=== PATIENT | female | born 2005 | race Caucasian/White ===

== ENCOUNTER 2023-08-31 08:03 | Outpatient (CLI) | payer MEDICAID, SELFPAY ==
--- NOTE | 2023-08-31 08:15 | US_ITS ---
Patient: DOUGLAS JONES Facility:?[facility] Patient ID:?[id number] Site Patient ID:?[id number] Site :?2003 Study:?US-Breast Left DSM to read-08/31/2023 8:50:41 AM Ordering Physician:?Cailin West Final Report: LEFT BREAST ULTRASOUND CLINICAL HISTORY: LEFT breast lump. COMPARISON: None. TECHNIQUE: Real-time ultrasound imaging of LEFT breast with imaging documentation. FINDINGS: Targeted sonogram LEFT breast 1 o`clock 3 cm from the nipple performed. Dense fibroglandular tissue is present. There is a small cyst present at posterior depth measuring 6 x 4 x 5 millimeters. No solid mass. IMPRESSION: Benign fibrocystic changes with a small 6 mm cyst at 1 o`clock 3 cm from the nipple. No abscess or malignancy. RECOMMENDATIONS: Clinical follow-up and age-appropriate screening mammography. Results and recommendations were discussed with the patient at the time of the exam. BI-RADS Category 2: Benign A lay language report of this examination will be provided to the patient. Dictated by Jared Carlos MD @ 08/31/2023 9:14:33 AM jj/Dictated by: Jared Carlos MD @ 08/31/2023 9:14:00 AM Signed by:?Jared Carlos MD @08/31/2023 12:27:40 PM (Electronic Signature)
== END 2023-08-31 08:04 | disposition home or self-care (01) ==
LOC: US 08:05
PROVIDERS: Visit Provider Registered Nurse
DX: N63.20 Unspecified lump in the left breast, unspecified quadrant (principal); N64.4 Mastodynia
CPT/HCPCS: 76642

== ENCOUNTER 2024-01-23 15:08 | Outpatient (CLI) | payer MEDICAID, SELFPAY ==
--- OUTSIDE RECORDS SUMMARY | 2024-01-23 15:12 | XMS_ITS | Clinical Summary ---
Author Organization [place] Address [address] [place], [place] [address]. [place] [address] Care Team Providers Care Clinical Administrator Name Role Phone Jared Mondragon MD Unavailable [phone] Clinic, [facility] Allergies Active Allergy Reactions Criticality Noted Date Comments Chlorhexidine Hives,Itching,Rash High 01/03/2022 Fluoxetine Dizziness,Hives,Othe r (See Comments),Unknown High 01/08/2019 Latex Hives,Rash High 01/03/2022 Lidocaine Hives,Rash High 03/24/2022 Medications Medication Sig Dispensed Refills Start Date End Date Status CALCIUM CARBONATE PO Take 600 mg by mouth Active drospirenone-ethinyl estradiol (ADWOA) 3-0.03 MG tablet Take 1 tablet by mouth daily Active fluticasone (FLONASE) 50 MCG/ACT nasal spray [place] 1 spray into both nostrils daily Active ranitidine (ZANTAC) 150 MG tablet Take 150 mg by mouth 2 times daily Active sertraline (ZOLOFT) 50 MG tablet Take 50 mg by mouth daily Active VITAMIN D, CHOLECALCIFEROL, PO Take 5,000 Units by mouth daily Active ferrous fumarate 65 mg, [place]. FE,-Vitamin C 125 mg (VITRON C) 65-125 MG TABS tablet Take 1 tablet by mouth daily Active METOPROLOL TARTRATE PO Take 25 mg by mouth Activ e fluticasone (FLONASE) 50 MCG/ACT nasal spray [place] 1 spray into both nostrils daily 9.9 mL 02/18/2023 Active Active Problems Problem Noted Date Diagnosed Date Dizziness 05/16/2019 Autonomic disorder 12/10/2018 Comments Yes Encounters Date Type Department Care Team Description 12/29/2023 7:24 PM CDT - 12/29/2023 10:10 PM CDT Emergency [facility] [address] [place] [address] Luis E Meade MD Abdominal pain during in first trimester Discharge Disposition: Home or Self Care 12/29/2023 Travel from Last 3 Months Social History Tobacco Use Types Packs/Day Years Used Date Smoking Tobacco: Never Smokeless Tobacco: Never Alcohol Use Standard Drinks/Week Comments Never 0 (1 standard drink = 0.6 oz pur e alcohol) AUDIT-C Answer Date Recorded Q1: How often do you have a drink containing alc ohol? Never 01/12/2019 Average Number of Drinks Not on file 019 Frequency of Binge Drinking Not on file 12/17 PHQ-2 Answer Date Recorded PHQ-2 Score 0 06/17/2019 Adolescent Education Answer Date Record ed Getting School Help Needed Not on file 01/29 Comments Yes Sex and Gender Information Value Date Recorded Sex Assigned at Not on file Gender Identity Not on file Sexual Orientation Not on file Last Filed Vital Signs Vital Sign Reading Time Taken Comments Blood Pressure 112/85 12/29/2023 10:06 PM CDT Pulse 118 12/29/2023 10:06 PM CDT Temperature 36.6 ??C (97.8 ??F) 12/29/2023 7:11 PM CD T Respiratory Rate 18 12/29/2023 10:06 PM CDT Oxygen Saturation 100% 12/29/2023 10:06 PM CDT Inhaled Oxygen Concentration - - Weight 47.2 kg (104 lb 0.9 oz) 12/29/2023 7:11 P M CDT Height 157.5 cm (5' 2) 12/29/2023 7:11 PM CDT Body Mass Index 19.03 12/29/2023 7:11 PM CDT Plan of Treatment Health Maintenance Due Date Last Done Comments ADVANCE CARE PLANNING 2003 ANNUAL REVIEW OF HM ORDERS 2003 CHLAMYDIA SCREENING 2003 YEARLY PREVENTIVE VISIT 2003 HIV SCREENING 12/03/2018 HEPATITIS C SCREENING 12/03/2021 PHQ-2 (once per calendar year) 2023 06/17/2019 COVID-19 Vaccine ( season) 2023 INFLUENZA VACCINE (#1) 2023 DTAP/TDAP/TD IMMUNIZATION (7 - Td or Tdap) 12/17/2025 12/18/2015, 07/25/2008, 05/17/2005, Additional history exists HEPATITIS B IMMUNIZATION Completed 005, 06/15/2004, 06/15/2004, Additional history exists Pneumococcal Vaccine: Pediatrics (0 to 5 Years) and At-Risk Patients (6 to 64 Years) Aged Out 05/17/2005, 09/28/2004, 06/15/2004, Additional history exists No longer eligible based on patient's age to complete this topic MENINGITIS IMMUNIZATION Aged Out 12/18/2015, 12/17 No longer eligible based on patient's age to complete this topic HPV IMMUNIZATION Completed 01/31/2019, 12/06/2016 RSV MONOCLONAL ANTIBODY Aged Out No l onger eligible based on patient's age to complete this topic Procedures Procedure Name Priority Date/Time Associated Diagnosis Comments US OB <14 WEEKS WITH TRANSVAGINAL SINGLE STAT 12/29/2023 9:16 PM CDT EXTRA BLOOD BANK PURPLE TOP TUBE STAT 12/29/2023 8:04 PM CDT EXTRA BLUE TOP TUBE STAT 12/29/2023 8 :04 PM CDT EXTRA BLOOD BANK PURPLE TOP TUBE STAT 12/29/2023 8:03 PM CDT EXTRA TUBE STAT 12/29/2023 8:03 PM CDT ABO/RH TYPE AND SCREEN STAT 12/29/2023 7:45 PM CDT TYPE AND SCREEN, ADULT STAT 12/29/2023 7:45 PM CDT CBC WITH PLATELETS & DIFFERENTIAL STAT 12/29/2023 7:25 PM CDT CBC WITH PLATELETS AND DIFFERENTIAL STAT 12/29/2023 7:25 PM CDT BASIC METABOLIC PANEL STAT 12/29/2023 7:25 PM CDT HCG QUANTITATIVE STAT 12/29/2023 7:25 PM CDT from Last 3 Months Results * OB US 1st trimester w transvag (12/29/2023 9:16 PM CDT) Anatomical Region Laterality Modality Abdomen/Pelvis Ultrasound 12/29/2023 9:16 PM CDT Impressions 12/29/2023 9:34 PM CDT IMPRESSION: Early intrauterine , 4 weeks 5 days by mean sac diameter, recommend continued follow-up with beta hCG and ultrasound as clinically indicated. Narrative 12/29/2023 9:34 PM CDT EXAM: US OB <14 WEEKS WITH TRANSVAGINAL SINGLE LOCATION: [facility] DATE: 12/29/2023 INDICATION: pain in , 5 6 weeks COMPARISON: None. TECHNIQUE: Transabdominal scans were performed. Endovaginal ultrasound was performed to better visualize the embryo. FINDINGS: UTERUS: Single normal appearing intrauterine gestation sac. MSD: Measures 0.3 cm, equals 4 weeks 5 days, 1 mm possible embryo visualized.. HEART RATE: None. Too early to require. AMNIOTIC FLUID: Normal. PLACENTA: Not yet formed. No evidence for sub-chorionic hemorrhage. RIGHT OVARY: Normal. Contains corpus luteal cyst. LEFT OVARY: Normal. Procedure Note Luis E Clarke MD - 12/29/2023 EXAM: US OB <14 WEEKS WITH TRANSVAGINAL SINGLE LOCATION: [facility] DATE: 12/29/2023 INDICATION: pain in , 5 6 weeks COMPARISON: None. TECHNIQUE: Transabdominal scans were performed. Endovaginal ultrasound wasperformed to better visualize the embryo. FINDINGS: UTERUS: Single normal appearing intrauterine gestation sac. MSD: Measures 0.3 cm, equals 4 weeks 5 days, 1 mm possible embryovisualized.. HEART RATE: None. Too early to require. AMNIOTIC FLUID: Normal. PLACENTA: Not yet formed. No evidence for sub-chorionic hemorrhage. RIGHT OVARY: Normal. Contains corpus luteal cyst. LEFT OVARY: Normal. IMPRESSION: Early intrauterine , 4 weeks 5 days by mean sac diameter,recommend continued follow-up with beta hCG and ultrasound as clinicallyindicated. Luis E Meade MD IMG US ORDERABLES * Extra Blood Bank Purple Top Tube (12/29/2023 8:04 PM CDT) Only the most recent of2 resultswithin the time period is included. Hold Specimen [facility] 12/29/2023 9:16 PM CDT [facility] LAB[facility] Blood VENOUS STRUCTURE / Unknown Venipuncture / Unknown 12/29/2023 8:04 PM CDT 12/29/2023 8:04 PM CDT Luis E Meade MD LAB - BLOOD ORDER PANCHO [facility] Lab [address] Lab (1st floor, no room number) [address] * Extra Blue Top Tube (12/29/2023 8:04 PM CDT) Hold Specimen [facility] 12/29/2023 9:16 PM CDT [facility] Blood VENOUS STRUCTURE / Unknown Venipuncture / Unknown 12/29/2023 8:04 PM CDT 12/29/2023 8:04 PM CDT Luis E Meade MD LAB - BLOOD ORDER PANCHO [facility] [address] Lab (1st floor, no room number) [address] * Adult Type and Screen (12/29/2023 7:45 PM CDT) ABO/RH(D) A POS 12/29/2023 7:38 PM CDT RH BLOOD BANK Antibody Screen Negative Negative 12/29/2023 7:38 PM CDT RH BLOOD BANK SPECIMEN EXPIRATION DATE [id number] 12/29/2023 7:38 PM CDT RH BLOOD BANK Blood BLOOD SPECIMEN / Unknown Venipuncture / Unknown 12/29/2023 7:45 PM CDT 12/29/2023 7:49 PM CDT Luis E Meade MD LAB - BLOOD BANK TEST ORDER RH [place]LOOD [place] [address], [facility] * CBC with platelets and differential (12/29/2023 7:25 PM CDT) WBC Count 7.1 4.0 - 11.0 10e3/uL 12/29/2023 8:03 PM CDT [facility] RBC Count 4.62 3.80 - 5.20 10e6/uL 12/29/2023 8:03 PM CDT [facility] Hemoglobin 13.2 11.7 - 15.7 g/dL 12/29/2023 8:03 PM CDT [facility] Hematocrit 39.7 35.0 - 47.0 % 12/29/2023 8:03 PM CDT [facility] MCV 86 78 - 100 fL 12/29/2023 8:03 PM CDT [facility] MCH 28.6 26.5 - 33.0 pg 12/29/2023 8:03 PM CDT [facility] MCHC 33.2 31.5 - 36.5 g/dL 12/29/2023 8:03 PM CDT [facility] RDW 13.2 10.0 - 15.0 % 12/29/2023 8:03 PM CDT [facility] Platelet Count 295 150 - 450 10e3/uL 12/29/2023 8:03 PM CDT [facility] % Neutrophils 71 % 12/29/2023 8:03 PM CDT [facility] % Lymphocytes 20 % 12/29/2023 8:03 PM CDT [facility] % Monocytes 8 % 12/29/2023 8:03 PM CDT [facility] % Eosinophils 0 % 12/29/2023 8:03 PM CDT [facility] % Basophils 1 % 12/29/2023 8:03 PM CDT [facility] % Immature Granulocytes 0 % 12/29/2023 8:03 PM CDT [facility] NRBCs per 100 WBC 0 <1 /100 024 8:03 PM CDT [facility] Absolute Neutrophils 5.1 1.6 - 8.3 10e3/uL 12/29/2023 8:03 PM CDT [facility] Absolute Lymphocytes 1.4 0.8 - 5.3 10e3/uL 12/29/2023 8:03 PM CDT [facility] Absolute Monocytes 0.6 0.0 - 1.3 10e3/uL 12/29/2023 8:03 PM CDT [facility] LAB[facility] Absolute Eosinophils 0.0 0.0 - 0.7 10e3/uL 12/29/2023 8:03 PM CDT [facility] LAB[facility] Absolute Basophils 0.0 0.0 - 0.2 10e3/uL 12/29/2023 8:03 PM CDT [facility] LAB[facility] Absolute Immature Granulocytes 0.0 <=0.4 10e3/uL 12/29/2023 8:03 PM CDT [facility] LAB[facility] Absolute NRBCs 0.0 10e3/uL 12/29/2023 8:03 PM CDT [facility] Blood BLOOD SPECIMEN / Unknown Venipuncture / Unknown 12/29/2023 7:25 PM CDT 12/29/2023 8:00 PM CDT Luis E Meade MD LAB - BLOOD ORDER PANCHO Performing Organization Address City/State/[facility] Co de Phone Number LABORATORY [facility] Lab [address] [facility] Lab (1st floor, no room number) [place] [address], [facility] * (ABNORMAL) HCG QUANTitative (blood) (12/29/2023 7:25 PM CDT) Pathologist [facility] hCG Quantitative 1,762(H) <5 mIU/mL 12/29/19 24 8:33 PM CDT [facility] LABORATORY Comment: Adult: 0-5 mIU/mL for healthy non- person Neonates: Should be within normal ranges by 2 days after Blood BLOOD SPECIMEN / Unknown Venipuncture / Unknown 12/29/2023 7:25 PM CDT 12/29/2023 8:09 PM CDT Luis E Meade MD LAB - BLOOD ORDER PANCHO LABORATORY [facility] Lab [address] Lab (1st floor, no room number) [place] [address], [facility] * (ABNORMAL) Basic metabolic panel (BMP) (12/29/2023 7:25 PM CDT) Sodium 135 135 - 145 mmol/L 12/29/2023 8:27 PM CDT LABORATORY Potassium 4.0 3.4 - 5.3 mmol/L 12/29/2023 8:27 PM CDT LABORATORY Chloride 102 98 - 107 mmol/L 12/29/2023 8:27 PM CDT LABORATORY Carbon Dioxide (CO2) 19(L) 22 - 29 mmol/L 12/29/2023 8:27 PM CDT LABORATORY Anion Gap 14 7 - 15 mmol/L 12/29/2023 8:27 PM CDT LABORATORY Urea Nitrogen 8.2 6.0 - 20.0 mg/dL 12/29/2023 8:27 PM CDT LABORATORY Creatinine 0.73 0.51 - 0.95 mg/dL 12/29/2023 8:27 PM CDT LABORATORY GFR Estimate >90 >60 mL/min/1.7 3m2 12/29/2023 8:27 PM CDT LABORATORY Comment:eGFR calculated usin 2020 CKD-EPI equation. Calcium 9.3 8.8 - 10.4 mg/dL 12/29/2023 8:27 PM CDT LABORATORY Comment:Reference intervals for this test were updated on 10/31/2023 to reflect our healthy population more accurately. There may be differences in the flagging of prior results with similar values performed with this method. Those prior results can be interpreted in the context of the updated reference intervals. Glucose 97 70 - 99 mg/dL 12/29/2023 8:27 PM CDT LABORATORY Blood BLOOD SPECIMEN / Unknown Venipuncture / Unknown 12/29/2023 7:25 PM CDT 12/29/2023 8:09 PM CDT Luis E Meade MD LAB - BLOOD ORDER PANCHO LABORATORY [facility] Lab [address] [facility] Lab (1st floor, no room number) [place] [address], [facility] from Last 3 Months Care Teams Clinical Administrator Relationship Specialty Start Date End Date Clinic, [facility] [place] [address] [place] [address] PCP - General 02/18/23 Jared Mondragon MD Cardiovascular Disease 01/05/22
--- OUTSIDE RECORDS SUMMARY | 2024-01-23 15:12 | XMS_ITS | Referral Summary ---
Author Organization [place] Address [address] [place], [place] [address] [address] Care Team Providers Care Tester [employer] Name Role Phone Jared Mondragon MD Unavailable [phone] Clinic, [place] [facility] [place] [facility] Encounters Date Type Department Care Team Description 12/29/2023 Travel 12/29/2023 7:24 PM CDT - 12/29/2023 10:10 PM CDT [facility] Emergency Dept [address] [place] [address] Luis E Meade MD Abdominal pain during in first trimester Discharge Disposition: Home or Self Care from Last 3 Months Allergies Active Allergy Reactions Criticality Noted Date [...] Active fluticasone (FLONASE) 50 MCG/ACT nasal spray [place] 1 spray into both nostrils daily Active ranitidine (ZANTAC) 150 MG tablet Take 150 mg by mouth 2 times daily Active sertraline (ZOLOFT) 50 MG tablet Take 50 mg by mouth daily Active VITAMIN D, CHOLECALCIFEROL, PO Take 5,000 Units by mouth daily Active ferrous fumarate 65 mg, [place]. FE,-Vitamin C 125 mg (VITRON C) 65-125 MG TABS tablet Take 1 tablet by mouth daily Active METOPROLOL TARTRATE PO Take 25 mg by mouth Activ e fluticasone (FLONASE) 50 MCG/ACT nasal spray [place] 1 spray into both nostrils daily 9.9 mL 02/18/2023 Active Active Problems Problem Noted Date Diagnosed Date Dizziness 05/16/2019 Autonomic disorder 12/10/2018 Comments Yes Social History Tobacco Use Types Packs/Day Years [...] 12/29/2023 7:11 PM CDT Plan of Treatment Not on file Procedures Procedure Name Priority Date/Time Associated Diagnosis [...] OB <14 WEEKS WITH TRANSVAGINAL SINGLE LOCATION: [facility] DATE: 12/29/2023 INDICATION: pain in , 5 [...] OB <14 WEEKS WITH TRANSVAGINAL SINGLE LOCATION: [facility] DATE: 12/29/2023 INDICATION: pain in , 5 [...] the time period is included. Hold Specimen [facility] 12/29/2023 9:16 PM CDT [facility] LABORATORY Blood VENOUS STRUCTURE / Unknown Venipuncture / Unknown 12/29/2023 8:04 PM CDT 12/29/2023 8:04 PM CDT Luis E Meade MD LAB - BLOOD ORDER PANCHO LABORATORY [facility] [address] [facility] ([facility]st floor, no room number) [place] [address] * Extra Blue Top Tube (12/29/2023 8:04 PM CDT) Hold Specimen [facility] 12/29/2023 9:16 PM CDT [facility] LABORATORY Blood VENOUS STRUCTURE / Unknown Venipuncture / Unknown 12/29/2023 8:04 PM CDT 12/29/2023 8:04 PM CDT Luis E Maede MD LAB - BLOOD ORDER PANCHO [facility] LABORAT[facility] [address] [facility] (1st floor, no room number) [place] [address] * Adult Type and Screen (12/29/2023 7:45 PM CDT) ABO/RH(D) A POS 12/29/2023 7:38 PM CDT RH BLOOD BANK Antibody Screen Negative Negative 12/29/2023 7:38 PM CDT RH BLOOD BANK SPECIMEN EXPIRATION DATE [id number] 12/29/2023 7:38 PM CDT RH BLOOD BANK Blood BLOOD SPECIMEN / Unknown Venipuncture / Unknown 12/29/2023 7:45 PM CDT 12/29/2023 7:49 PM CDT Lui sE Meade MD LAB - BLOOD BANK TEST ORDER RH BLOOD BANK [address] [place] [address] * CBC with platelets and differential (12/29/2023 [...] 7:25 PM CDT 12/29/2023 8:00 PM CDT Lui sE Meade MD LAB - BLOOD ORDER PANCHO LABORATORY [facility] Lab [address] Lab (1st floor, no room number) [place] [address] * (ABNORMAL) HCG QUANTitative (blood) (12/29/2023 7:25 PM CDT) hCG Quantitative 1,762(H) <5 mIU/mL 12/29/19 8:33 PM CDT LABORATORY Comment: Adult: 0-5 mIU/mL for healthy non- person Neonates: Should be within normal ranges by 2 days after Blood BLOOD SPECIMEN / Unknown Venipuncture / Unknown 12/29/2023 7:25 PM CDT 12/29/2023 8:09 PM CDT Luis E Meade MD LAB - BLOOD ORDER PANCHO LABORATORY [facility] [address] Lab (1st floor, no room number) [place] [id number] * (ABNORMAL) Basic metabolic panel (BMP) (12/29/2023 7:25 PM CDT) Pathologist [facility] Sodium 135 135 - 145 mmol/L 12/29/2023 [...] >60 mL/min/1.7 3m2 12/29/2023 8:27 PM CDT RH LABORATORY Comment:eGFR calculated usin 2020 CKD-EPI equation. Calcium 9.3 8.8 - 10.4 mg/dL 12/29/2023 8:27 PM CDT [facility] LABOR[facility] Comment:Reference intervals for this test were updated on 10/31/2023 to reflect our healthy population more accurately. There may be differences in the flagging of prior results with similar values performed with this method. Those prior results can be interpreted in the context of the updated reference intervals. Glucose 97 70 - 99 mg/dL 12/29/2023 8:27 PM CDT [facility] LABORATORY Blood BLOOD SPECIMEN / Unknown Venipuncture / Unknown 12/29/2023 7:25 PM CDT 12/29/2023 8:09 PM CDT Luis E Meade MD LAB - BLOOD ORDER PANCHO RH LABORATORY [facility] Lab [address] [facility] Lab (1st floor, no room number) [place] [address], [facility] from Last 3 Months Care Teams Tester Food Products Relationship Specialty Start Date End Date [facility] [address] [place] [address] PCP - General 02/18/23 Jared Mondragon MD Cardiovascular Disease 01/05/22
--- OUTSIDE RECORDS SUMMARY | 2024-01-23 15:13 | XMS_ITS | Encounter Summary ---
Author Organization [place] Address [address] [place], [place] [address]. [place] [address] Care Team Providers Care Sole Leather Cutting Machine Operator Name Role Phone Jared Mondragon MD Unavailable [phone] Clinic, [facility] ov[facility] Reason for Visit * Reason Comments Abdominal Pain Encounter Details Date Type Department Care Team (Late st Contact Info) Description 12/29/2023 7:24 PM CDT - 12/29/2023 10:10 PM CDT Emergency [facility] Emergency Dept [address] [place] [address] [phone] Luis E Meade MD [facility] [address] [place] [address] Abdominal pain during in first trimester Discharge Disposition: Home or Self Care Social History Tobacco Use Types Packs/Day Years [...] on file Sexual Orientation Not on file documented as of this encounter Last Filed Vital Signs Vital Sign Reading [...] Mass Index 19.03 12/29/2023 7:11 PM CDT documented in this encounter Discharge Instructions * Discharge Instructions* Luis E Meade MD - 12/29/2023 10:01 PM CDT It was a pleasure taking care of you today. I hope you feel much better soon. Your ultrasound showed a reassuring 4 week, 5 day . Please follow-up with your OBGYN in 2-3 days. Return immediately for worse pain, bleeding, or any other concerns. * Attachments The following attachments cannot be sent through Care Everywhere. * : Abdominal Pain (Swazi) documented in this encounter Medications at Time of Discharge Medication Sig Dispensed Refills Start Date End Date CALCIUM CARBONATE PO Take 600 mg by mouth drospirenone-ethinyl estradiol (ADWOA) 3-0.03 MG tablet Take 1 tablet by mouth daily ferrous fumarate 65 mg, table mountain. FE,-Vitamin C 125 mg (VITRON C) 65-125 MG TABS tablet Take 1 tablet by mouth daily fluticasone (FLONASE) 50 MCG/ACT nasal spray [place] 1 spray into both nostrils daily 9.9 mL 02/18/2023 fluticasone (FLONASE) 50 MCG/ACT nasal spray [place] 1 spray into both nostrils daily METOPROLOL TARTRATE PO Take 25 mg by mouth ranitidine (ZANTAC) 150 MG tablet Take 150 mg by mouth 2 times daily sertraline (ZOLOFT) 50 MG tablet Take 50 mg by mouth daily VITAMIN D, CHOLECALCIFEROL, PO Take 5,000 Units by mouth daily documented as of this encounter ED Notes * Luis E Meade MD - 12/29/2023 9:59 PM CDT History Chief Complaint: Abdominal cramping HPI Raymundo Arndt is a 18 year old female currently ~5 weeks who presents with suprapubic cramping. The patient states that the symptoms began last week, were mild, intermittent. In the last few days, they have been more prominent and involved pain to the right lower stomach. She denies bleeding, dysuria, frequency, or any other concerns. She was advised by her RADIAL SAW OPERATOR to present for rule out ectopic. Independent Historian: none Review of External Notes: Reviewed 12/24/2023 telephone encounter with RADIAL SAW OPERATOR and 08/11/2022 RADIAL SAW OPERATOR office visit ROS: Review of Systems Allergies: Chlorhexidine Fluoxetine Latex Lidocaine Medications: CALCIUM CARBONATE PO drospirenone-ethinyl estradiol (ADWOA) 3-0.03 MG tablet ferrous fumarate 65 mg, table mountain. FE,-Vitamin C 125 mg (VITRON C) 65-125 MG TABS tablet fluticasone (FLONASE) 50 MCG/ACT nasal spray fluticasone (FLONASE) 50 MCG/ACT nasal spray METOPROLOL TARTRATE PO ranitidine (ZANTAC) 150 MG tablet sertraline (ZOLOFT) 50 MG tablet VITAMIN D, CHOLECALCIFEROL, PO Past History: Past Medical History: Diagnosis Date ADHD (attention deficit hyperactivity disorder) Anxiety Autistic behavior Chronic fatigue syndrome Depression Gastroesophageal reflux disease Headache POTS (postural orthostatic tachycardia syndrome) Sleep disturbance Vitamin D deficiency Physical Exam Patient Vitals for the past 24 hrs: Vitals: 12/29/23191012/29/231912 BP: (!) 157/113 Pulse: (!) 142 Resp: 18 Temp: 97.8 ??F (36.6 ??C) TempSrc: Oral SpO2: 99% Weight: 47.2 kg (104 lb 0.9 oz) Height: 1.575 m (5' 2) Physical Exam Constitutional: Alert, attentive HENT: Nose: Nose normal. Eyes: EOM are normal. CV: regular rate and rhythm; no murmurs, rubs or gallups Chest: Effort normal and breath sounds normal. GI: There is no tenderness. No distension. Normal bowel sounds MSK: Normal range of motion. Neurological: Alert, attentive Skin: Skin is warm and dry. Emergency Department Course Results for orders placed or performed during the hospital encounter of 12/29/23 OB US 1st trimester w transvag Status: None Narrative EXAM: US OB <14 WEEKS WITH TRANSVAGINAL SINGLE LOCATION: [facility] DATE: 12/29/2023 INDICATION: pain in , [...] Contains corpus luteal cyst. LEFT OVARY: Normal. Impression IMPRESSION: Early intrauterine , 4 weeks 5 days by mean sac diameter, recommend continued follow-up with beta hCG and ultrasound as clinically indicated. HCG QUANTitative (blood) Status: Abnormal Result Value Ref Range hCG Quantitative 1,762 (H) <5 mIU/mL Basic metabolic panel (BMP) Status: Abnormal Result Value Ref Range Sodium 135 135 - 145 mmol/L Potassium 4.0 3.4 - 5.3 mmol/L Chloride 102 98 - 107 mmol/L Carbon Dioxide (CO2) 19 (L) 22 - 29 mmol/L Anion Gap 14 7 - 15 mmol/L Urea Nitrogen 8.2 6.0 - 20.0 mg/dL Creatinine 0.73 0.51 - 0.95 mg/dL GFR Estimate >90 >60 mL/min/1.73m2 Calcium 9.3 8.8 - 10.4 mg/dL Glucose 97 70 - 99 mg/dL [place] Draw Status: None Narrative The following orders were created for panel order [place] Draw. Procedure Abnormality Status --------- ------ Extra Blue Top Tube[[id number]] Final result Extra Blood Bank Purple ...[[id number]] Final result [facility] Blood Bank Purple ...[[id number]] Final result Please view results for these tests on the individual orders. CBC with platelets and differential Status: None Result Value Ref Range WBC Count 7.1 4.0 - 11.0 10e3/uL RBC Count 4.62 3.80 - 5.20 10e6/uL Hemoglobin 13.2 11.7 - 15.7 g/dL Hematocrit 39.7 35.0 - 47.0 % MCV 86 78 - 100 fL MCH 28.6 26.5 - 33.0 pg MCHC 33.2 31.5 - 36.5 g/dL RDW 13.2 10.0 - 15.0 % Platelet Count 295 150 - 450 10e3/uL % Neutrophils 71 % % Lymphocytes 20 % % Monocytes 8 % % Eosinophils 0 % % Basophils 1 % % Immature Granulocytes 0 % NRBCs per 100 WBC 0 <1 /100 Absolute Neutrophils 5.1 1.6 - 8.3 10e3/uL Absolute Lymphocytes 1.4 0.8 - 5.3 10e3/uL Absolute Monocytes 0.6 0.0 - 1.3 10e3/uL Absolute Eosinophils 0.0 0.0 - 0.7 10e3/uL Absolute Basophils 0.0 0.0 - 0.2 10e3/uL Absolute Immature Granulocytes 0.0 <=0.4 10e3/uL Absolute NRBCs 0.0 10e3/uL Extra Blue Top Tube Status: None Result Value Ref Range Hold Specimen [facility] Blood Bank Purple Top Tube Status: None Result Value Ref Range Hold Specimen [facility] Blood [facility] Purple Top Tube Status: None Result Value Ref Range Hold Specimen [facility] Adult Type and Screen Status: None Result Value Ref Range ABO/RH(D) A POS Antibody Screen Negative Negative SPECIMEN EXPIRATION DATE [id number] CBC + differential Status: None Narrative The following orders were created for panel order CBC + differential. Procedure Abnormality Status --------- ------ CBC with platelets and d...[[id number]] Final result Please view results for these tests on the individual orders. ABO/Rh type and screen Status: None Narrative The following orders were created for panel order ABO/Rh type and screen. Procedure Abnormality Status --------- ------ Adult Type and Screen[[id number]] Final result Please view results for these tests on the individual orders. Emergency Department Course & Assessments: Given patient's tachycardia, I recommended IV fluids. She declined. Heart rate recheck at this was urgent is 118. Disposition: The patient was discharged to home. Impression & Plan Medical Decision Making: This is a 18-year-old female currently approximately 5 weeks who presents for evaluation of mild abdominal pain in the context of , with some radiation to the right lower quadrant. Exam and history are not consistent with appendicitis that she has no fever or leukocytosis. Ultrasound shows no evidence of ectopic or complication of . UA shows no UTI. Doubt acute abdominal process given the above presentation. Discussed this could represent symptoms of threatened or evolving miscarriage. Plan RADIAL SAW OPERATOR follow-up in 3 to 5 days for recheck and return precaution for worse pain, bleeding, or any other concerns. Lastly, the patient declined PIV placement and IV fluids, recommended given tachycardia. She appears euvolemic on exam and has a normal blood pressure,normal hemoglobin, normal electrolyte panel and renal function, but declines fluids. Heart rate improved without intervention but still mildly tachycardic. Stressed the importance of return precautions as per above. Diagnosis: Visit Diagnosis, Associated Orders, and Comments ICD-10-CM 1. Abdominal pain during in first trimester O26.891 R10.9 Luis E Meade MD 12/30/23 0214 * Renay Hubbard RN - 12/29/2023 7:13 PM CDT Pt reports she is and has been having abd cramping more right then left for the past 4 days, pt denies vaginal bleeding. Pt sent from clinic to check for ectopic Triage Assessment (Adult) Row Name 12/29/231911 Triage Assessment Airway WDL WDL Respiratory WDL Respiratory WDL WDL Cardiac WDL Cardiac WDL WDL Peripheral/Neurovascular WDL Peripheral Neurovascular WDL WDL Cognitive/Neuro/Behavioral WDL Cognitive/Neuro/Behavioral WDL WDL documented in this encounter Plan of Treatment Not on file documented as of this encounter Procedures Procedure Name Priority Date/Time Associated Diagnosis Comments US OB <14 WEEKS WITH TRANSVAGINAL SINGLE STAT 12/29/2023 9:16 PM CDT EXTRA BLOOD BANK PURPLE TOP TUBE STAT 12/29/2023 8:04 PM CDT EXTRA BLUE TOP TUBE STAT 12/29/2023 8 :04 PM CDT EXTRA TUBE STAT 12/29/2023 8:03 PM CDT EXTRA BLOOD BANK PURPLE TOP TUBE STAT 12/29/2023 8:03 PM CDT TYPE AND SCREEN, ADULT STAT 12/29/2023 7:45 PM CDT ABO/RH TYPE AND SCREEN STAT 12/29/2023 7:45 PM CDT CBC WITH PLATELETS AND DIFFERENTIAL STAT 12/29/2023 7:25 PM CDT CBC WITH PLATELETS & DIFFERENTIAL STAT 12/29/2023 7:25 PM CDT HCG QUANTITATIVE STAT 12/29/2023 7:25 PM CDT BASIC METABOLIC PANEL STAT 12/29/2023 7:25 PM CDT documented in this encounter Results * OB US 1st trimester w [...] OB <14 WEEKS WITH TRANSVAGINAL SINGLE LOCATION: [facility] DATE: 12/29/2023 INDICATION: pain in , [...] OB <14 WEEKS WITH TRANSVAGINAL SINGLE LOCATION: [facility] DATE: 12/29/2023 INDICATION: pain in , [...] ultrasound as clinicallyindicated. Luis E Meade MD [facility] [place]LES * Extra Blood Bank Purple Top Tube (12/29/2023 8:04 PM CDT) Hold Specimen [facility] 12/29/2023 9:16 PM CDT LABORATORY Blood VENOUS STRUCTURE / Unknown Venipuncture / Unknown 12/29/2023 8:04 PM CDT 12/29/2023 8:04 PM CDT Luis E Meade MD LAB - BLOOD ORDER PANCHO LABORATORY [facility] Acute Care Lab [address] [facility] Lab (1st floor, no room number) [place] [id number] [place] [address] * Extra Blue Top Tube (12/29/2023 8:04 PM CDT) Hold Specimen [facility] 12/29/2023 9:16 PM CDT RH LABORATORY Blood VENOUS STRUCTURE / Unknown Venipuncture / Unknown 12/29/2023 8:04 PM CDT 12/29/2023 8:04 PM CDT Luis E Meade MD LAB - BLOOD ORDER PANCHO [facility] Acute Care Lab [address] Lab (1st floor, no room number) [place] [id number] [place] [address] * Extra Blood Bank Purple Top Tube (12/29/2023 8:03 PM CDT) Hold Specimen [facility] 12/29/2023 9:16 PM CDT RH LABORATORY Blood VENOUS STRUCTURE / Unknown Venipuncture / Unknown 12/29/2023 8:03 PM CDT 12/29/2023 8:04 PM CDT Luis E Meade MD LAB - BLOOD ORDER PANCHO [facility] Care Lab [address] Lab (1st floor, no room number) [place] [id number] * Adult Type and Screen (12/29/2023 7:45 PM CDT) ABO/RH(D) A POS 12/29/2023 7:38 PM CDT RH BLOOD BANK Antibody Screen Negative Negative 12/29/2023 7:38 PM CDT RH BLOOD BANK SPECIMEN EXPIRATION DATE [id number] 12/29/2023 7:38 PM CDT RH BLOOD BANK Blood BLOOD SPECIMEN / Unknown Venipuncture / Unknown 12/29/2023 7:45 PM CDT 12/29/2023 7:49 PM CDT Luis E Meade MD LAB - BLOOD BANK TEST ORDER RH BLOOD BANK [place] [address], [facility] * CBC with platelets and differential (12/29/2023 [...] - 5.3 10e3/uL 12/29/2023 8:03 PM CDT LABORATORY Absolute Monocytes 0.6 0.0 - 1.3 10e3/uL 12/29/2023 8:03 PM CDT LABORATORY Absolute Eosinophils 0.0 0.0 - 0.7 10e3/uL 12/29/2023 8:03 PM CDT LABORATORY Absolute Basophils 0.0 0.0 - 0.2 10e3/uL 12/29/2023 8:03 PM CDT RH LABORATORY Absolute Immature Granulocytes 0.0 <=0.4 10e3/uL 12/29/2023 8:03 PM CDT LABORATORY Absolute NRBCs 0.0 10e3/uL 12/29/2023 8:03 PM CDT LABORATORY Blood BLOOD SPECIMEN / Unknown Venipuncture / Unknown 12/29/2023 7:25 PM CDT 12/29/2023 8:00 PM CDT Luis E Meade MD LAB - BLOOD ORDER [facility]CHO LABORATORY [facility] Acute Care Lab [address] [facility] Lab (1st floor, no room number) [place] [address], [facility] * (ABNORMAL) Basic metabolic panel (BMP) (12/29/2023 [...] Meade MD LAB - BLOOD ORDER PANCHO [facility] Lab [address] Lab (1st floor, no room number) [place] [address] * (ABNORMAL) HCG QUANTitative (blood) (12/29/2023 7:25 PM CDT) hCG Quantitative 1,762(H) <5 mIU/mL 12/29/19 24 8:33 PM CDT [facility] LABORATORY Comment: Adult: 0-5 mIU/mL for healthy non- person Neonates: Should be within normal ranges by 2 days after Blood BLOOD SPECIMEN / Unknown Venipuncture / Unknown 12/29/2023 7:25 PM CDT 12/29/2023 8:09 PM CDT Luis E Meade MD LAB - BLOOD ORDER PANCHO [facility] Lab [address] Lab (1st floor, no room number) [place] [address] documented in this encounter Visit Diagnoses Diagnosis Abdominal pain during in first trimester documented in this encounter Active and Recently Administered Medications Care Teams Sole Leather Cutting Machine Operator Relationship Specialty Start Date End Date Clinic, [facility] [address] [place] [address] PCP - General 02/18/23 Jared Mondragon MD Cardiovascular Disease 01/05/22 documented as of this encounter
--- OUTSIDE RECORDS SUMMARY | 2024-01-23 15:13 | XMS_ITS | Encounter Summary ---
Author Organization [place] Address [address] [place], [place] [address] [address] Care Team Providers Care Tester Operator Helper Name Role Phone Jared Mondragon MD Unavailable [phone] [facility] Primary Care Pr ovider Encounter Details Date Type Department Care Team (Latest Contact Info) Description 12/29/2023 Travel Social History Tobacco Use Types Packs/Day Years [...] on file documented as of this encounter Plan of Treatment Not on file documented as of this encounter Visit Diagnoses Not on filedocumented in this encounter Care Teams Tester Operator Helper Relationship Specialty Start Date End Date [facility], [facility] [address] [place] [address] PCP - General 02/18/23 Jared Mondragon MD Cardiovascular Disease 01/05/22 documented as of this encounter
--- OUTSIDE RECORDS SUMMARY | 2024-01-23 15:13 | XMS_ITS | Encounter Summary ---
Author Organization [place] Address [address] [place], [place] [address] [place] [address] Care Team Providers Care [employer]anc[employer] Consultant Name Role Phone Edwin Mehta MD Primary Care Provider [phone] Jared Mondragon MD Unavailable [phone] Clinic, [facility] Primary Care Pr ovider Encounter Details Date Type Department Care Team (Late st Contact Info) Description 08/01/2021 Documentation Only INTERFACED REPORT Unknown, Provider Social History Tobacco Use Types Packs/Day Years [...] Answer Date Recorded PHQ-2 Score 0 06/17/2019 Sex and Gender Information Value Date Recorded Sex Assigned at Not on file Gender Identity Not on file Sexual Orientation Not on file documented as of this encounter Plan of Treatment Not on file documented as of this encounter Visit Diagnoses Not on filedocumented in this encounter Additional Health Concerns Infection Onset Date Last Indicated Resolved Time Rule Out COVID-19 08/01/2021 08/01/2021 08/01/2021 5:43 AM CDT Rule Out COVID-19 02/18/2023 02/18/2023 02/18/2023 4:58 AM CDT documented as of this encounter Care Teams [employer] Consultant Relationship Specialty Start Date End Date Edwin Mehta MD [facility] [address] [place] [address] PCP - General Pediatrics 01/08/19 02/17/23 [facility], [address] [address] PCP - General 02/18/23 Jared Mondragon MD [facility] [address] [place] [address] Cardiovascular Disease 01/05/22 documented as of this encounter
--- OUTSIDE RECORDS SUMMARY | 2024-01-23 15:13 | XMS_ITS | Encounter Summary ---
Author Organization [place] Address [address] [place], [place] [address]. [place] [address] Care Team Providers Care Fire Extinguisher Tester Name Role Phone Edwin Mehta MD Primary Care Provider [phone] Jared Mondragon MD Unavailable [phone] Clinic, [facility] Primary Care Pr ovider Encounter Details Date Type Department Care Team (Late st Contact Info) Description 02/18/2021 Documentation Only INTERFACED REPORT Unknown, Provider Social [...] on file Sexual Orientation Not on file COVID-19 Exposure Response Date Recorded In the last month, have you been in contact with someone who was confirmed or suspected to have Coronavirus / COVID-19? No / Unsure 02/18/2021 8:36 AM CDT documented as of this encounter Plan of Treatment Not on file documented as of this encounter Visit Diagnoses Not on filedocumented in this encounter Additional Health Concerns Infection Onset Date Last Indicated Resolved Time Rule Out COVID-19 02/18/2021 02/18/2021 02/18/2021 9:51 AM CDT COVID-19 02/18/2021 02/18/2021 03/11/2021 11:4 1 PM SECOND WORKER Rule Out COVID-19 08/01/2021 08/01/2021 08/01/2021 5:43 AM CDT Rule Out COVID-19 02/18/2023 02/18/2023 02/18/2023 4:58 AM CDT documented as of this encounter Care Teams Fire Extinguisher Tester Relationship Specialty Start Date End Date Edwin Mehta MD [facility] [address] [place] [address] PCP - General Pediatrics 01/08/19 02/17/[address] [address] PCP - General 02/18/23 Jared Mondragon MD [facility] [address] [place] [address] Cardiovascular Disease 01/05/22 documented as of this encounter
--- OUTSIDE RECORDS SUMMARY | 2024-01-23 15:13 | XMS_ITS | Encounter Summary ---
Author Organization [place] Address [address] [place] [address]. [place] [address] Care Team Providers Care Food And Beverage Order Clerk Name Role Phone Edwin Mehta MD Primary Care Provider [phone] Jared Mondragon MD Unavailable [phone] Clinic, [facility] Primary Care Pr ovider Encounter Details Date Type Department Care Team (Late st Contact Info) Description 06/02/2022 Telephone [facility] Heart [address] [address] Jared Mondragon MD [address] [place] [address] Social History Tobacco Use Types Packs/Day Years [...] on file documented as of this encounter Miscellaneous Notes * Telephone Encounter - Tania Hernandez CMA - 06/03/2022 9:23 AM CST 2nd attempt LVM to pt mom regarding cancelling her appt due to Covid. TCLUB MANAGER * Telephone Encounter - Tania Hernandez CMA - 06/02/2022 4:14 PM CST LVM with pt mother regarding appt with Alanna Routed to RN to further advise via Staff mssg TCLUB MANAGER * Telephone Encounter - Tania Hernandez CMA - 06/02/2022 4:13 PM CST ----- Message from Hali Lester sent at 06/02/2022 4:08 PM NIGHTCLUB MANAGER ----- Regarding: FW: Pt Reschedule - Alanna ----- Message ----- From: Joana Townsend Sent: 06/02/2022 1:48 PM NIGHTCLUB MANAGER To: [id number] Subject: Pt Reschedule - [place] Hi, I just called the pt to ask about records and she was wanting to reschedule due to her having covid. I didn't cancel it yet because I know Dr. Mondragon books out quite a bit. Please give pt a call back to go over her options. Thanks! Joana TCLUB MANAGER documented in this encounter Plan of Treatment Not on file documented as of this encounter Visit Diagnoses Not on filedocumented in this encounter Additional Health Concerns Infection Onset Date Last Indicated Resolved Time Rule Out COVID-19 02/18/2023 02/18/2023 02/18/2023 4:58 AM CDT documented as of this encounter Care Teams Food And Beverage Order Clerk Relationship Specialty Start Date End Date Edwin Mehta MD [facility] [address] [place] [address] PCP - General Pediatrics 01/08/19 02/17/23 [facility], [facility] [address] [place] [address] PCP - General 02/18/23 Jared Mondragon MD [facility] [address] [place] [address] Cardiovascular Disease 01/05/22 documented as of this encounter
--- OUTSIDE RECORDS SUMMARY | 2024-01-23 15:13 | XMS_ITS | Encounter Summary ---
Author Organization [place] Address [address] [place], [place] [address] [address] Care Team Providers Care Handle Rounder Operator Name Role Phone Edwin Mehta MD Primary Care Provider [phone] Jared Mondragon MD Unavailable [phone] Clinic, [facility] Primary Care Pr ovider Encounter Details Date Type Department Care Team (Late st Contact Info) Description 05/03/2021 Documentation Only INTERFACED REPORT Unknown, Provider Social [...] have Coronavirus / COVID-19? No / Unsure 05/02/2021 12:12 PM SPECIAL WEAPONS AND TACTICS OFFICER documented as of this encounter Plan of Treatment Not on file documented as of this encounter Visit Diagnoses Not on filedocumented in this encounter Additional Health Concerns Infection Onset Date Last Indicated Resolved Time Rule Out COVID-19 08/01/2021 08/01/2021 08/01/2021 5:43 AM CDT Rule Out COVID-19 02/18/2023 02/18/2023 02/18/2023 4:58 AM CDT documented as of this encounter Care Teams Handle Rounder Operator Relationship Specialty Start Date End Date Edwin Mehta MD [facility] [address] [place] [address] PCP - General Pediatrics 01/08/19 02/17/23 [facility] [address] [address] PCP - General 02/18/23 Jared Mondragon MD [facility] [address] [place] [address] Cardiovascular Disease 01/05/22 documented as of this encounter
== END 2024-01-23 15:09 | disposition home or self-care (01) ==
PROVIDERS: Visit Provider Midwife
DX: Z34.91 Encounter for supervision of normal pregnancy, unspecified, first trimester (principal); O20.9 Hemorrhage in early pregnancy, unspecified; Z3A.08 8 weeks gestation of pregnancy
CPT/HCPCS: 76817; 84443; 86592; 86703; 86704; 86706; 86762; 86787; 86803; 86850; 86900; 86901; 87086; 87340

== ENCOUNTER 2024-02-19 15:12 | Outpatient (CLI) | payer MEDICAID, SELFPAY ==
--- OUTSIDE RECORDS SUMMARY | 2024-02-19 15:15 | XMS_ITS | Referral Summary ---
Author Organization [place] Address [address] [place], [place] [address]. [place] [address] Care Team Providers Care Lung Gun Operator Name Role Phone Jared Mondragon MD Unavailable [phone] Clinic, [facility] [place] [facility] Pr ovider Encounters Date Type Department Care Team Description 12/29/2023 Travel 12/29/2023 7:24 PM CDT - 12/29/2023 10:10 PM CDT [facility] Emergency Dept [address] [place] [address] Luis E Meade MD Abdominal pain during in first trimester Discharge Disposition: Home or Self Care from Last 3 Months Allergies Active Allergy Reactions Criticality Noted Date Comments Chlorhexidine Hives,Itching,Rash High 01/03/2022 Fluoxetine Dizziness,Hives,Othe r (See Comments),Unknown High 01/08/2019 Latex Hives,Rash High 01/03/2022 Lidocaine Hives,Rash High 03/24/2022 Medications CALCIUM CARBONATE PO Take 600 mg by mouth Active drospirenone-et hinyl estradiol (ADWOA) 3-0.03 MG tablet Take 1 tablet by mouth daily Active fluticasone (FLONASE) 50 MCG/ACT nasal spray [place] 1 spray into both nostrils daily Active ranitidine (ZANTAC) 150 MG tablet Take 150 mg by mouth 2 times daily Active sertraline (ZOLOFT) 50 MG tablet Take 50 mg by mouth daily Active VITAMIN D, CHOLECALCIFEROL , PO Take 5,000 Units by mouth daily Active ferrous fumarate 65 mg, [place]. 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 Luis E Meade MD [facility] ORDERABLES Final R esult * Extra Blood Bank Purple Top Tube (12/29/2023 8:04 PM CDT) Only the most recent of2 resultswithin the time period is included. [facility] Hold Specimen [facility] 12/29/2023 9:16 PM CDT LABORATORY Blood VENOUS STRUCTURE / Unknown Venipuncture / Unknown 12/29/2023 8:04 PM CDT 12/29/2023 8:04 PM CDT Luis E Meade MD LAB - BLOOD ORDERABLES Fi nal Result LABORATORY [facility] Acute Care Lab [address] Lab (1st floor, no room number) [place] [address], [facility] * Extra Blue Top Tube (12/29/2023 8:04 PM CDT) Hold Specimen [facility] 12/29/2023 9:16 PM CDT RH LABORATORY Blood VENOUS STRUCTURE / Unknown Venipuncture / Unknown 12/29/2023 8:04 PM CDT 12/29/2023 8:04 PM CDT Luis E Meade MD LAB - BLOOD ORDERABLES Fi nal Result LABORATORY [facility] [address] [facility] Lab (1st floor, no room number) [place] [address] * Adult Type and Screen (12/29/2023 7:45 PM CDT) Pathologist [facility] ABO/RH(D) A POS 12/29/2023 7:38 PM CDT RH BLOOD BANK Antibody Screen Negative Negative 12/29/2023 7:38 PM CDT RH BLOOD BANK SPECIMEN EXPIRATION DATE [id number] 12/29/2023 7:38 PM CDT RH BLOOD BANK Blood BLOOD SPECIMEN / Unknown Venipuncture / Unknown 12/29/2023 7:45 PM CDT 12/29/2023 7:49 PM CDT Luis E Meade MD LAB - BLOOD BANK TEST ORD ER Final Result Performing Organization Address City/[facility]/ZIP Co de Phone Number BLOOD BANK [address] [place] [address] * CBC with platelets and differential (12/29/2023 [...] Luis E Meade MD LAB - BLOOD ORDERABLES Fi nal Result [facility] Care Lab [address] Lab (1st floor, no room number) [place] [address] * (ABNORMAL) HCG QUANTitative (blood) (12/29/2023 7:25 PM CDT) hCG Quantitative 1,762(H) <5 mIU/mL 12/29/19 8:33 PM CDT RH LABORATORY Comment: Adult: 0-5 mIU/mL for healthy non- person Neonates: Should be within normal ranges by 2 days after Blood BLOOD SPECIMEN / Unknown Venipuncture / Unknown 12/29/2023 7:25 PM CDT 12/29/2023 8:09 PM CDT Luis E Meade MD LAB - BLOOD ORDERABLES Fi nal Result [facility] [address] [facility] Lab (1st floor, no room number) [place] [address] * (ABNORMAL) Basic metabolic panel (BMP) (12/29/2023 7:25 PM CDT) Sodium 135 135 - 145 mmol/L 12/29/2023 8:27 PM CDT LABORATORY Potassium 4.0 3.4 - 5.3 mmol/L 12/29/2023 8:27 PM CDT RH LABORATORY Chloride 102 98 - 107 mmol/L 12/29/2023 8:27 PM CDT LABORATORY Carbon Dioxide (CO2) 19(L) 22 - 29 mmol/L 12/29/2023 8:27 PM CDT RH LABORATORY Anion Gap 14 7 - 15 mmol/L 12/29/2023 8:27 PM CDT RH LABORATORY Urea Nitrogen 8.2 6.0 - 20.0 mg/dL 12/29/2023 8:27 PM CDT RH LABORATORY Creatinine 0.73 0.51 - 0.95 mg/dL 12/29/2023 8:27 PM CDT RH LABORATORY GFR Estimate >90 >60 mL/min/1.7 3m2 12/29/2023 8:27 PM CDT RH LABORATORY Comment:eGFR calculated 2020 CKD-EPI equation. Calcium 9.3 8.8 - [...] Luis E Meade MD LAB - BLOOD ORDERABLES nal Result RH LABORATORY [facility] Acute [facility] Lab [address] [facility] Lab (1st floor, no room number) [place] [address], [facility] from Last 3 Months Insurance [place] Care Teams Lung Gun Operator Relationship Specialty Start Date End Date Clinic, [facility] [place] [id number] [place] [address] PCP - General 02/18/23 Jared Mondragon MD Cardiovascular Disease 01/05/22
--- OUTSIDE RECORDS SUMMARY | 2024-02-19 15:15 | XMS_ITS | Encounter Summary ---
Author Organization [place] Address [address] [place], [place] [address]. [place] [address] Care Team Providers Care Clay Burner Name Role Phone Jared Mondragon MD Unavailable [phone] [facility] Pr ovider Encounter Details Date [...] on file Legal Sex Female 4:39 AM DIRECTOR CLINICAL DATA Gender Identity Not on file Sexual Orientation Not on file documented as of this encounter Plan of Treatment Not on file documented as of this encounter Visit Diagnoses Not on filedocumented in this encounter Care Teams Clay Burner Relationship Specialty Start Date End Date [facility], [facility] [place] [address] [place] [address] PCP - General 02/18/23 Jarde Mondragon MD Cardiovascular Disease 01/05/22 documented as of this encounter
--- OUTSIDE RECORDS SUMMARY | 2024-02-19 15:15 | XMS_ITS | Clinical Summary ---
Author Organization [place] Address [address] [place], [place] [address] [address] Care Team Providers Care Golf Course Mechanic Name Role Phone Jared Mondragon MD Unavailable [phone] Clinic, [facility] [place] [facility] Pr ovider Allergies Active Allergy Reactions Criticality Noted Date Comments Chlorhexidine Hives,Itching,Rash High 01/03/2022 Fluoxetine Dizziness,Hives,Othe r (See Comments),Unknown High 01/08/2019 Latex Hives,Rash High 01/03/2022 Lidocaine Hives,Rash High 03/24/2022 Medications CALCIUM CARBONATE PO Take 600 mg by mouth Active drospirenone-et hinyl estradiol (ADWOA) 3-0.03 MG tablet Take 1 tablet by mouth daily Active fluticasone (FLONASE) 50 MCG/ACT nasal spray [place] 1 spray into both nostrils daily Active ranitidine (ZANTAC) 150 MG tablet Take 150 mg by mouth 2 times daily Active sertraline (ZOLOFT) 50 MG tablet Take 50 mg by mouth daily Active VITAMIN D, CHOLECALCIFEROL , PO Take 5,000 Units by mouth daily Active ferrous fumarate 65 mg, [place]. FE,-Vitamin C 125 mg (VITRON C) 65-125 MG TABS tablet Take 1 tablet by mouth daily Active METOPROLOL TARTRATE PO Take 25 mg by mouth Active fluticasone (FLONASE) 50 MCG/ACT nasal spray [place] 1 spray into both nostrils daily 9.9 mL 02/18/2023 Active Active Problems Problem Noted Date Diagnosed Date Dizziness 05/16/2019 Autonomic disorder 12/10/2018 Comments Yes Encounters Date Type Department Care Team Description 12/29/2023 7:24 PM CDT - 12/29/2023 10:10 PM CDT Emergency [facility] Emergency Dept [address] [place] [address] Luis E Meade MD Abdominal pain during [...] on file Legal 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 Gender Identity Not on file Sexual Orientation [...] per calendar year) 2023 06/17/2019 COVID-19 Vaccine (1 - 2023- season) 2023 INFLUENZA VACCINE (#1) 2023 DTAP/TDAP/TD IMMUNIZATION (7 - Td or Tdap) 12/17/2025 12/18/2015, 07/25/2008, 05/17/2005, Additional history exists RSV VACCINE (1 - 1-dose 75+ series) 12/03/2078 HEPATITIS B IMMUNIZATION Completed 005, 06/15/2004, 06/15/2004, [...] OB <14 WEEKS WITH TRANSVAGINAL SINGLE LOCATION: [facility] DATE: 12/29/2023 INDICATION: pain in , [...] OB <14 WEEKS WITH TRANSVAGINAL SINGLE LOCATION: [facility] DATE: 12/29/2023 INDICATION: pain in , [...] Luis E Meade MD IMG US ORDERABLES Final R esult * Extra Blood Bank Purple Top Tube (12/29/2023 8:04 PM CDT) Only the most recent of2 resultswithin the time period is included. Hold Specimen [facility] 12/29/2023 9:16 PM CDT RH LABORATORY Blood VENOUS STRUCTURE / Unknown Venipuncture / Unknown 12/29/2023 8:04 PM CDT 12/29/2023 8:04 PM CDT Luis E Meade MD LAB - BLOOD ORDERABLES Fi nal Result [facility] Lab [address] Lab (1st floor, no room number) [address] * Extra Blue Top Tube (12/29/2023 8:04 PM CDT) [facility] Signature Hold Specimen [facility] 12/29/2023 9:16 PM CDT LABORATORY Blood VENOUS STRUCTURE / Unknown Venipuncture / Unknown 12/29/2023 8:04 PM CDT 12/29/2023 8:04 PM CDT Luis E Meade MD LAB - BLOOD ORDERABLES Fi nal Result [facility] Acute Care Lab [address] Lab (1st floor, no room number) [address] * Adult Type and Screen (12/29/2023 7:45 PM CDT) ABO/RH(D) A POS 12/29/2023 7:38 PM CDT RH BLOOD BANK Antibody Screen Negative Negative 12/29/2023 7:38 PM CDT RH BLOOD BANK SPECIMEN EXPIRATION DATE [id number] 12/29/2023 7:38 PM CDT RH BLOOD BANK Blood BLOOD SPECIMEN / Unknown Venipuncture / Unknown 12/29/2023 7:45 PM CDT 12/29/2023 7:49 PM CDT us Luis E Meade MD LAB - BLOOD BANK TEST ORD ER Final Result RH BLOOD BANK [address] [place] [address], [facility] * CBC with platelets and differential [...] 7:25 PM CDT 12/29/2023 8:00 PM CDT us Luis E Meade MD LAB - BLOOD ORDERABLES Fi nal Result RH LABORATORY [facility] Acute Care Lab [address] [facility] Lab (1st floor, no room number) [place] [address], [facility] * (ABNORMAL) HCG QUANTitative (blood) (12/29/2023 [...] LAB - BLOOD ORDERABLES Fi nal Result RH LABORATORY [facility] Acute Care Lab [address] Lab (1st floor, no room number) [place] [address], [facility] * (ABNORMAL) Basic metabolic panel (BMP) (12/29/2023 7:25 PM CDT) Pathologist [facility] Sodium 135 135 - 145 mmol/L 12/29/2023 [...] 8:27 PM CDT LABORATORY Comment:eGFR calculated usin g 2020 CKD-EPI equation. Calcium 9.3 8.8 - [...] LAB - BLOOD ORDERABLES Fi nal Result [facility] Acute Care Lab [address] Lab (1st floor, no room number) [place] [address], [facility] from Last 3 Months [place] Care Teams Golf Course Mechanic Relationship Specialty Start Date End Date Clinic, [address] [address] PCP - General 02/18/23 Jared Mondragon MD Cardiovascular Disease 01/05/22
--- OUTSIDE RECORDS SUMMARY | 2024-02-19 15:16 | XMS_ITS | Encounter Summary ---
Author Organization [place] Address [address] [place] [address]. [place] [address] Care Team Providers Care Roustabout Supervisor Name Role Phone Edwin Mehta MD Primary Care Provider [phone] Jared Mondragon MD Unavailable [phone] [facility] Encounter Details Date Type Department Care Team (Late st Contact Info) Description 06/02/2022 Telephone [facility] [address] [address] Jared Mondragon MD [address] [place] [address] Social History Tobacco Use Types Packs/Day [...] Answer Date Recorded PHQ-2 Score 0 06/17/2019 Comments No Sex and Gender Information Value Date Recorded Sex Assigned at Not on file Legal Sex Female 4:39 AM CUSTOM DESIGNER Gender Identity Not on file Sexual Orientation Not on file documented as of this encounter Miscellaneous Notes * Telephone Encounter - Tania Hernandez CMA - 06/03/2022 9:23 AM CST 2nd attempt LVM to pt mom regarding cancelling her appt due to Covid. OM DESIGNER * Telephone Encounter - Tania Hernandez CMA - 06/02/2022 4:14 PM CST LVM with pt mother regarding appt with Alanna Routed to RN to further advise via Staff mssg OM DESIGNER * Telephone Encounter - Tania Hernandez CMA - 06/02/2022 4:13 PM CST ----- Message from Hali Lester sent at 06/02/2022 4:08 PM CUSTOM DESIGNER ----- Regarding: FW: Pt Reschedule - Alanna ----- Message ----- From: Joana Townsend Sent: 06/02/2022 1:48 PM CUSTOM DESIGNER To: Clinic [id number] Subject: Pt Reschedule - Alanna Hi, I just called the pt to ask about records and she was wanting to reschedule due to her having covid. I didn't cancel it yet because I know Dr. Mondragon books out quite a bit. Please give pt a call back to go over her options. Thanks! Joana OM DESIGNER documented in this encounter Plan of Treatment Not on file documented as of this encounter Visit Diagnoses Not on filedocumented in this encounter Additional Health Concerns Infection Onset Date Last Indicated Resolved Time Rule Out COVID-19 02/18/2023 02/18/2023 02/18/2023 4:58 AM CDT documented as of this encounter Care Teams Roustabout Supervisor Relationship Specialty Start Date End Date Edwin Mehta MD [facility] [place] [facility] [place] [address] PCP - General Pediatrics 01/08/19 02/17/23 [facility], [facility] [address] [address] [place] [address] PCP - General 02/18/23 Jared Mondragon MD [facility] [address] [place] [address] Cardiovascular Disease 01/05/22 documented as of this encounter
--- OUTSIDE RECORDS SUMMARY | 2024-02-19 15:16 | XMS_ITS | Encounter Summary ---
Author Organization [place] Address [address] [place], [place] [address]. [place] [address] Care Team Providers Care Filter Press Pumper Name Role Phone Jared Mondragon MD Unavailable [phone] Clinic, [facility] [place] [facility] Pr ovider Reason for Visit * Reason Comments Abdominal Pain Encounter Details Date Type Department Care Team (Late st Contact Info) Description 12/29/2023 7:24 PM CDT - 12/29/2023 10:[address] 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 * : Abdominal Pain (Yemeni) documented in this encounter Medications at Time of Discharge CALCIUM CARBONATE PO Take 600 mg by mouth drospirenone-ethi nyl estradiol (ADWOA) 3-0.03 MG tablet Take 1 tablet by mouth daily ferrous fumarate 65 mg, [place]. FE,-Vitamin C 125 mg (VITRON C) 65-125 MG TABS tablet Take 1 tablet by mouth daily fluticasone (FLONASE) 50 MCG/ACT nasal spray [place] 1 spray into both nostrils daily 9.9 mL 02/18/2023 fluticasone (FLONASE) 50 MCG/ACT nasal spray [place] 1 spray into both nostrils daily METOPROLOL [...] other concerns. She was advised by her ELECTRIC TRACK SWITCH MAINTAINER to present for rule out ectopic. Independent Historian: none Review of External Notes: Reviewed 12/24/2023 telephone encounter with ELECTRIC TRACK SWITCH MAINTAINER and 08/11/2022 ELECTRIC TRACK SWITCH MAINTAINER office visit ROS: Review of Systems Allergies: Chlorhexidine Fluoxetine Latex Lidocaine Medications: CALCIUM CARBONATE PO drospirenone-ethinyl estradiol (ADWOA) 3-0.03 MG tablet ferrous fumarate 65 mg, [place]. FE,-Vitamin C 125 mg (VITRON C) 65-125 [...] OB <14 WEEKS WITH TRANSVAGINAL SINGLE LOCATION: [facility] DATE: 12/29/2023 INDICATION: pain in [...] mg/dL Glucose 97 70 - 99 mg/dL Centre Draw Status: None Narrative The following orders were created for panel order Centre Draw. Procedure Abnormality Status --------- ------ Extra Blue Top Tube[[id number]] Final result Extra Blood Bank Purple ...[[id number]] Final result Extra Blood Bank Purple ...[[id number]] Final result Please view results for these [...] None Result Value Ref Range Hold Specimen [facility] Blood [facility] Purple Top Tube Status: None Result Value Ref Range Hold Specimen [facility] Blood [facility] Purple Top Tube Status: None Result Value Ref Range Hold Specimen [facility] Adult Type and Screen Status: None Result Value Ref Range ABO/RH(D) A POS Antibody Screen Negative Negative SPECIMEN EXPIRATION DATE [id number] CBC + differential Status: None Narrative The following orders were created for panel order CBC + differential. Procedure Abnormality Status --------- ------ CBC with platelets and d...[[id number]] Final result Please view results for these tests on the individual orders. ABO/Rh type and screen Status: None Narrative The following orders were created for panel order ABO/Rh type and screen. Procedure Abnormality Status --------- ------ Adult Type and Screen[[id number]] Final result Please view results for these [...] symptoms of threatened or evolving miscarriage. Plan ELECTRIC TRACK SWITCH MAINTAINER follow-up in 3 to 5 days for [...] OB <14 WEEKS WITH TRANSVAGINAL SINGLE LOCATION: [facility] DATE: 12/29/2023 INDICATION: pain in [...] OB <14 WEEKS WITH TRANSVAGINAL SINGLE LOCATION: [facility] DATE: 12/29/2023 INDICATION: pain in [...] ultrasound as clinicallyindicated. Luis E Meade MD [facility] US ORDERABLES Final R esult * Extra Blood Bank Purple Top Tube (12/29/2023 8:04 PM CDT) Hold Specimen [facility] 12/29/2023 9:16 PM CDT RH LABORATORY Blood VENOUS STRUCTURE / Unknown Venipuncture / Unknown 12/29/2023 8:04 PM CDT 12/29/2023 8:04 PM CDT Luis E Meade MD LAB - BLOOD ORDERABLES Fi nal Result [facility] Lab [address] Lab (1st floor, no room number) [place] [id number] * Extra Blue Top Tube (12/29/2023 8:04 PM CDT) Hold Specimen [facility] 12/29/2023 9:16 PM CDT RH LABORATORY Blood VENOUS STRUCTURE / Unknown Venipuncture / Unknown 12/29/2023 8:04 PM CDT 12/29/2023 8:04 PM CDT Luis E Meade MD LAB - BLOOD ORDERABLES Fi nal Result Performing Organization Address City/[facility]/ZIP Co de Phone Number [facility] Lab [address] Lab (1st floor, no room number) [place] [id number] * Extra Blood Bank Purple Top Tube (12/29/2023 8:03 PM CDT) Hold Specimen [facility] 12/29/2023 9:16 PM CDT RH LABORATORY Blood VENOUS STRUCTURE / Unknown Venipuncture / Unknown 12/29/2023 8:03 PM CDT 12/29/2023 8:04 PM CDT us Luis E Meade MD LAB - BLOOD ORDERABLES Fi nal Result Performing Organization Address City/[facility]/ZIP Co de Phone Number [facility] Lab [address] Lab (1st floor, no room number) [place] [id number] * Adult Type and Screen (12/29/2023 7:45 PM CDT) ABO/RH(D) A POS 12/29/2023 7:38 PM CDT RH BLOOD BANK Antibody Screen Negative Negative 12/29/2023 7:38 PM CDT RH BLOOD BANK SPECIMEN EXPIRATION DATE [id number] 12/29/2023 7:38 PM CDT RH BLOOD BANK Blood BLOOD SPECIMEN / Unknown Venipuncture / Unknown 12/29/2023 7:45 PM CDT 12/29/2023 7:49 PM CDT us Luis E Meade MD LAB - BLOOD BANK TEST ORD ER Final Result RH BLOOD [place] [address], [facility] * [...] - BLOOD ORDERABLES Fi nal Result LABORATORY [facility] Lab [address] [facility] Lab (1st floor, no room number) [place] [address], [facility] * [...] LAB - BLOOD ORDERABLES Fi nal Result [facility] Lab [address] [facility] Lab (1st floor, no room number) [place] [address] * (ABNORMAL) HCG QUANTitative (blood) (12/29/2023 [...] LAB - BLOOD ORDERABLES Fi nal Result [facility] Care Lab [address] Lab (1st floor, no room number) [place] [address], [facility] documented in this encounter Visit Diagnoses Diagnosis Abdominal pain during in first trimester documented in this encounter Active and Recently Administered Medications Care Teams Filter Press Pumper Relationship Specialty Start Date End Date Clinic, [facility] [place] [address] [place] [address] PCP - General 02/18/23 Jared Mondragon MD Cardiovascular Disease 01/05/22 documented as of this encounter
--- OUTSIDE RECORDS SUMMARY | 2024-02-19 15:16 | XMS_ITS | Encounter Summary ---
Author Organization [place] Address [address] [place], [place] [address]. [place] [address] Care Team Providers Care Dispatcher Automobile Rental Name Role Phone Edwin Mehta MD Primary Care Provider [phone] Jared Mondragon MD Unavailable [phone] Clinic, [facility] Primary Care Pr ovider Encounter Details Date [...] on file Legal Sex Female 4:39 AM HEALTH COMPANION Gender Identity Not on file Sexual Orientation Not on file COVID-19 Exposure Response Date Recorded In the last month, have you been in contact with someone who was confirmed or suspected to have Coronavirus / COVID-19? No / Unsure 05/02/2021 12:12 PM HEALTH COMPANION documented as of this encounter Plan of Treatment Not on file documented as of this encounter Visit Diagnoses Not on filedocumented in this encounter Additional Health Concerns Infection Onset Date Last Indicated Resolved Time Rule Out COVID-19 08/01/2021 08/01/2021 08/01/2021 5:43 AM CDT Rule Out COVID-19 02/18/2023 02/18/2023 02/18/2023 4:58 AM CDT documented as of this encounter Care Teams Dispatcher Automobile Rental Relationship Specialty Start Date End Date Edwin Mehta MD [facility] [address] [place] [address] PCP - General Pediatrics 01/08/19 02/17/23 [facility], [address] [address] PCP - General 02/18/23 Jared Mondragon MD [facility] [address] [place] [address] Cardiovascular Disease 01/05/22 documented as of this encounter
--- OUTSIDE RECORDS SUMMARY | 2024-02-19 15:16 | XMS_ITS | Encounter Summary ---
Author Organization [facility] Address [address] [place], [place] [address]. [place] [address] Care Team Providers Care Rn Mobile Name Role Phone Edwin Mehta MD Primary Care Provider [phone] Jared Mondragon MD Unavailable [phone] [facility] [place] [facility] Pr ovider Encounter Details Date [...] on file Legal Sex Female 4:39 AM ELEVATOR REPAIRER APPRENTICE Gender Identity Not on file Sexual Orientation [...] COVID-19 02/18/2021 02/18/2021 03/11/2021 11:4 1 PM ELEVATOR REPAIRER APPRENTICE Rule Out COVID-19 08/01/2021 08/01/2021 08/01/2021 5:43 AM CDT Rule Out COVID-19 02/18/2023 02/18/2023 02/18/2023 4:58 AM CDT documented as of this encounter Care Teams Rn Mobile Relationship Specialty Start Date End Date Edwin Mehta MD [facility] [address] [place] [address] PCP - General Pediatrics 01/08/19 02/17/[address] [address] PCP - General 02/18/23 Jared Mondragon MD [facility] [address] [place] [address] Cardiovascular Disease 01/05/22 documented as of this encounter
--- OUTSIDE RECORDS SUMMARY | 2024-02-19 15:16 | XMS_ITS | Encounter Summary ---
Author Organization [facility] Address [address] [place], [place] [address]. [place] [address] Care Team Providers Care Hose Seamer Name Role Phone Edwin Mehta MD Primary Care Provider [phone] Jared Mondragon MD Unavailable [phone] [facility] Pr ovider Encounter Details Date [...] on file Legal Sex Female 4:39 AM SUPERVISORY FORESTER Gender Identity Not on file Sexual Orientation [...] documented as of this encounter Care Teams Hose Seamer Relationship Specialty Start Date End Date Edwin Mehta MD [facility] [address] [place] [address] PCP - General Pediatrics 01/08/19 02/17/[address] [address] PCP - General 02/18/23 Jared Mondragon MD [facility] [address] [place] [address] Cardiovascular Disease 01/05/22 documented as of this encounter
[2024-02-19 17:50] LABS: Chlamydia DNA Amplified* NOT DETECTED (No Detected); GC DNA Amplified* NOT DETECTED (No Detected)
== END 2024-02-19 15:13 | disposition home or self-care (01) ==
LOC: NFLDREF 15:12
PROVIDERS: Visit Provider Obstetrics & Gynecology
DX: Z11.3 Encounter for screening for infections with a predominantly sexual mode of transmission (principal)
CPT/HCPCS: 87491; 87591

== ENCOUNTER 2024-04-09 09:39 | Outpatient (CLI) | payer MEDICAID, SELFPAY ==
--- OUTSIDE RECORDS SUMMARY | 2024-04-08 13:33 | XMS_ITS | Summary of Care ---
Author Organization [facility] is Address [address] [place] [address]- Care Team Providers Care Corporate Paralegal Name Role Phone Edwin Mehta Primary Care Physician Encounter [employer] Date(s): 07/24/16 - 07/25/16 [id number] [place] [address]- Discharge Diagnosis: Chest pain Discharge Diagnosis: Anxiety Discharge Disposition: Home/Self Care Attending Physician: Nickie Wagner MD Admitting Physician: Nickie Wagner MD Referring Physician: Edwin Mehta Vital Signs Most recent to oldest [Reference Range]: 1 ED Chief Complaint History /Information Pt w/ chest pain, cough and difficulty breathing. Episodes have been occuring for 1 month, has been seen @ PMD. EKG was normal. No heart hx. Pt states pain is constant, but worse today. Ibuprofen last @ 1020. Increased pain with deep inspiration (07/24/16 9:19 PM) Temperature Oral [36.0-37.6 DegC] 36.9 D egC (07/24/16 6:52 PM) Apical Heart Rate [60-100 bpm] 90 bpm (07/25/16 1:22 AM) Pulse Rate [55-90 bpm] 103 bpm *HI* (07/24/16 6:52 PM) Pulse Sitting 86 bpm (07/24/16 11:13 PM) Pulse Standing 112 bpm (07/24/16 11:13 PM) Pulse Supine 76 bpm (07/24/16 11:13 PM) Respiratory Rate [18-30 br/min] 16 br/mi n *LOW* (07/25/16 1:22 AM) Location of Blood Pressure Right arm (07/24/16 11:13 PM) Blood Pressure [77-126/40-81 mm Hg] 108/ 75mm Hg (07/24/16 6:52 PM) SBP Sitting [77-126 mm Hg] 114 mm Hg (07/24/16 11:13 PM) DBP Sitting [40-81 mm Hg] 75 mm Hg (07/24/16 11:13 PM) SBP Standing [77-126 mm Hg] 125 mm Hg (07/24/16 11:13 PM) DBP Standing [40-81 mm Hg] 90 mm Hg *HI* (07/24/16 11:13 PM) SBP Supine [77-126 mm Hg] 111 mm Hg (07/24/16 11:13 PM) DBP Supine [40-81 mm Hg] 65 mm Hg (07/24/16 11:13 PM) Oxygen Saturation [94.0-100.0 %] 99 % (07/25/16 1:22 AM) Oxygen Therapy Room air (07/25/16 1:22 AM) Weight 42.8 kg (07/24/16 6:52 PM) DOSING WEIGHT 42.800 kg (07/24/16 6:52 PM) Weight Method Actual (07/24/16 6:52 PM) Problem List Condition Effective Dates Status Health Status Inform ant Anxiety state(Confirmed) Active Developmental reading disorder(Confirmed) Active Allergies, Adverse Reactions, Alerts No Known Allergies Medications ibuprofen 100 mg/5 mL oral suspension 400 mg = 20 mL PO Q6H PRN, PRN pain, mild or fever, X 5 Days, # 1 BOTTLE, 0 Refill(s), Acute Start Date: 07/24/16 Stop Date: 07/29/16 Status: Ordered Results No data available for this section Immunizations No data available for this section Procedures No data available for this section Social History No data available for this section Assessment and Plan No data available for this section Reason for Visit Chest pain - pediatric
--- OUTSIDE RECORDS SUMMARY | 2024-04-08 13:34 | XMS_ITS | Continuity of Care Document ---
Author Organization [facility] Address [address] [place] [address]- Care Team Providers Care Lozenge Dough Mixer Name Role Phone Edwin Mehta Primary Care Physician [facility] Unavailable Encounter [employer] Date(s): 08/23/21 - 08/23/21 [address] [place] [address]- Discharge Disposition: Home/Self Care Attending Physician: Piper Murillo MD Admitting Physician: Piper Murillo MD Referring Physician: Piper Murillo MD Allergies, Adverse Reactions, Alerts Substance Reaction Severity Status Latex Precautions Active chlorhexidine containing compounds Chlorhexidine Gluco lauren Active Biopatch Active FLUoxetine Active Problem List Condition Effective Dates Status Health Status Inform ant Anxiety(Confirmed) Active Autism spectrum disorder(Confirmed) Active Developmental reading disorder(Confirmed) Active Vital Signs Most recent to oldest [Reference Range]: 1 Vital Signs Reason Post-sedation (08/23/21 2:18 PM) Temperature Axillary [36-37 DegC] 36.6 D egC (08/23/21 1:59 PM) Apical Heart Rate [60-100 bpm] 102 bpm *HI* (08/23/21 11:53 AM) Heart Rate via Monitor 94 bpm bpm (08/23/21 1:50 PM) HR via Pulse Ox [60-100 bpm] 103 bpm *HI* (08/23/21 2:18 PM) Respiratory Rate [12-16 br/min] 20 br/mi n *HI* (08/23/21 2:18 PM) Respiratory Rate via Monitor 18 br/min b r/min (08/23/21 1:50 PM) Blood Pressure [90-138/45-84 mm Hg] 104/ 59mm Hg (08/23/21 2:18 PM) MAP Cuff 77 mm Hg (08/23/21 2:18 PM) Oxygen Saturation [94-100 %] 95 % (08/23/21 2:18 PM) Oxygen Therapy Room air (08/23/21 2:18 PM) Height 159 cm (08/23/21 11:53 AM) Weight 44.8 kg (08/23/21 11:53 AM) DOSING WEIGHT 44.800 kg (08/23/21 11:53 AM) [place] Body Weight 53.50 kg 1 (08/23/21 11:53 AM) [place] Body Weight Percentage 84.00 % 2 (08/23/21 11:53 AM) BSA 1.407 m2 (08/23/21 11:53 AM) Body Mass Index 17.7 kg/m2 (08/23/21 11:53 AM) BMI Percentile 6.72 % 3 (08/23/21 11:53 AM) 1Result Comment: Automatically calculated as a result of charting a height of 159 cm. 2Result Comment: Automatically calculated as a result of charting a height of 159 cm. 3Result Comment: Automatically calculated as a result of charting a BMI of 17.7 Care Team Personnel Name: Tyson MCGHEE, Edwin Harding Address: [address] [address]- Name: [facility] Address: [address] [address]
--- OUTSIDE RECORDS SUMMARY | 2024-04-08 13:34 | XMS_ITS | Continuity of Care Document ---
Author Organization [facility] is Address [address] [place] [address]- Care Team Providers Care Stretcher Leveler Operator Helper Name Role Phone Edwin Mehta Primary Care Physician [facility] Unavailable Encounter [email or web address] Date(s): 06/12/21 - 06/13/21 [facility] [address] [place] [address]- Encounter Diagnosis Dermatitis(Discharge Diagnosis) - 06/13/21 Vascular port complication(Discharge Diagnosis) - 06/13/21 Urinary tract infection(Discharge Diagnosis) - 06/13/21 Cellulitis(Discharge Diagnosis) - 06/13/21 POTS (postural orthostatic tachycardia syndrome)(Discharge Diagnosis) - 06/13/21 Anxiety(Discharge Diagnosis) - 06/13/21 Discharge Disposition: Home/Self Care Attending Physician: Ajith Miller DO Admitting Physician: Nilda Ch MD Referring Physician: Edwin Mehta MD Allergies, Adverse Reactions, Alerts Substance Reaction Severity Status Latex Precautions Active FLUoxetine Active Medications Cipro 500 mg oral tablet 500 mg = 1 TABLET PO BID, # 8 TABLET, 0 Refill(s), Indication: Genitourinary Infection, Acute, other Start Date: 06/13/21 Stop Date: 06/16/21 Status: Ordered clotrimazole 1% topical cream = 1 application Topically BID, # 60 g, 0 Refill(s), Apply for 2 weeks, [facility] Start Date: 06/13/21 Status: Ordered Keflex 250 mg oral capsule 500 mg PO TID X 5 Days, # 30 CAP, 0 Refill(s), Indication: Skin & Soft Tissue Infection, Acute,Pharmacy: [facility], 500 mg PO TID,x5 Days Start Date: 06/13/21 Stop Date: 06/18/21 Status: Ordered Problem List Condition Effective Dates Status Health Status Inform ant Anxiety(Confirmed) Active Autism spectrum disorder(Confirmed) Active Developmental reading disorder(Confirmed) Active Results Laboratory List Name Date CBC with Diff and Platelets 06/13/21 CRP 06/13/21 SARS-CoV-2 RNA Detection, Swab (COVID-19 PCR) 06/13/21 Most recent to oldest [Reference Range]: 1 SARS-CoV-2 Source SIGHT EFFECTS SPECIALIST SWAB (06/13/21 1:26 AM) SARS-CoV-2 RNA Negative 1 (06/13/21 1:26 AM) Basophils [0-1 %] 1 % (06/13/21 4:15 AM) CRP (C-Reactive Protein) [0.0-0.5 mg/dL] <0.40 mg/dL (06/13/21 4:15 AM) Eosinophils [0-3 %] 2 % (06/13/21 4:15 AM) HEMATOCRIT [33-51 %] 34.3 % (06/13/21 4:15 AM) HEMOGLOBIN [12.0-16.0 g/dL] 11.4 g/dL *LOW* (06/13/21 4:15 AM) Lymphocytes [25-45 %] 38 % (06/13/21 4:15 AM) MCH [25-35 pg] 27.8 pg (06/13/21 4:15 AM) MCHC [32-36 %] 33.2 % (06/13/21 4:15 AM) MCV [78-102 fL] 84 fL (06/13/21 4:15 AM) Monocytes [4-10 %] 9 % (06/13/21 4:15 AM) Neutrophils [34-64 %] 50 % (06/13/21 4:15 AM) Nucleated RBC's/100 WBC [0 /100 WBC] 0 / 100 WBC (06/13/21 4:15 AM) RBC [4.10-5.10 M/uL] 4.10 M/uL (06/13/21 4:15 AM) RDW [11.5-14.0 %] 13.7 % (06/13/21 4:15 AM) WBC [4.5-13.0 k/uL] 7.6 k/uL (06/13/21 4:15 AM) PLATELET COUNT [150-450 k/uL] 283 k/uL (06/13/21 4:15 AM) Mean Platelet Volume [7.4-10.4 fL] 9.9 f L (06/13/21 4:15 AM) Diff Type Auto (06/13/21 4:15 AM) Absolute Lymphocyte Count [1.10-6.00 k/u L] 2.900 k/uL (06/13/21 4:15 AM) Immature Granulocyte [0.0-0.3 %] 0 % (06/13/21 4:15 AM) ANC, Differential [1.50-9.50 k/uL] 3.800 k/uL (06/13/21 4:15 AM) 1Result Comment: The [employer] Xpert Xpress RT-PCR Assay was issued an Emergency Use Authorization (EUA) by the FDA Orders for Microbiology Reports Name Date Skin or Superficial Wound Cu lture and Gram Stain (Wound, Culture Superficial and Gram Stain) 06/13/21 Microbiology Reports TEST:Skin Culture1 STATUS:Order in Progress BODY SITE:Chest SOURCE:Skin COLLECTED DATE/TIME:06/13/21 4:51 AM Micro Gram Stain GRAM SMEAR: 1. 2+ WBC'S 2. NO ORGANISMS SEEN INTERPRETIVE DATA 1 TRANSPORT TIME: 0.2 HOUR SPECIAL REQUESTS: ID and suceptibilities as indicated Vital Signs Most recent to oldest [Reference Range]: 1 2 ED Chief Complaint History /Information Pt sent here for concern of infection around port. Pt is also taking antibiotics for a UTI. Tylenol 2200. Antibiotics given. The port was accessed on monday, there was a small irritation noted on top of the port but the port was still accessed. PMH of POTS (06/13/21 3:34 AM) Pt sent here for concern of infection around port. Pt is also taking antibiotics for a UTI. Tylenol 2200. Antibiotics given. The port was accessed on monday, there was a small irritation noted on top of the port but the port was still accessed. PMH of POTS (06/13/21 3:34 AM) Vital Signs Reason Admission assessment (06/13/21 3:00 AM) Temperature Oral [36-37.6 DegC] 36.9 DegC (06/13/21 12:58 PM) Temperature Temporal [36.2-37.8 DegC] 36.9 DegC (06/12/21 11:41 PM) Apical Heart Rate [60-100 bpm] 92 bpm (06/13/21 3:00 AM) Heart Rate via Monitor [60-100 bpm] 101 bpm *HI* (06/13/21 12:58 PM) Respiratory Rate [12-16 br/min] 16 br/min (06/13/21 12:58 PM) Blood Pressure [90-138/45-84 mm Hg] 117/87mm Hg (06/13/21 12:58 PM) MAP Cuff 97 mm Hg (06/13/21 12:58 PM) BP Cuff Site RUE (06/13/21 9:00 AM) Oxygen Saturation [94-100 %] 99 % (06/12/21 11:41 PM) Height 159 cm (06/13/21 3:34 AM) Height Method Estimated (06/13/21 3:34 AM) Weight 46.1 kg (06/13/21 3:34 AM) DOSING WEIGHT 46.100 kg (06/12/21 11:37 PM) Weight Method Actual (06/13/21 3:34 AM) [place] Body Weight 53.35 kg 1 (06/13/21 3:34 AM) [place] Body Weight Percentage 86.00 % 2 (06/13/21 3:34 AM) Predicted Body Weight for Ventilation 51.510 kg 3 (06/13/21 3:34 AM) BSA 1.427 m2 (06/13/21 3:34 AM) Body Mass Index 18.2 kg/m2 (06/13/21 3:34 AM) BMI Percentile 11.65 % 4 (06/13/21 3:34 AM) 1Result Comment: Automatically calculated as a result of charting a height of 159 cm. 2Result Comment: Automatically calculated as a result of charting a height of 159 cm. 3Result Comment: Automatically created due to Height charted as 159 cm. 4Result Comment: Automatically calculated as a result of charting a BMI of 18.2 Care Team Personnel Name: Tyson MCGHEE, Edwin Harding Address: [address] [address] Name: [facility] Address: [address] [address]
--- OUTSIDE RECORDS SUMMARY | 2024-04-08 13:35 | XMS_ITS | Continuity of Care Document ---
Author Organization [facility] Address [address] [place] [address]- Care Team Providers Care Information Technology Professor Name Role Phone Edwin Mehta Primary Care Physician [facility] Unavailable Encounter [employer] Date(s): 06/15/21 - 06/15/21 [id number] [place] [address]- Encounter Diagnosis Port-A-Cath in place(Discharge Diagnosis) - 06/15/21 Skin irritation(Discharge Diagnosis) - 06/15/21 Discharge Disposition: Home/Self Care Attending Physician: Marilou Osullivan MD Admitting Physician: Marilou Osullivan MD Referring Physician: Edwin Mehta MD Allergies, Adverse Reactions, Alerts Substance Reaction Severity Status Latex Precautions Active Biopatch Active FLUoxetine Active Medications No Known Medications Problem List Condition Effective Dates Status Health Status Inform ant Anxiety(Confirmed) Active Autism spectrum disorder(Confirmed) Active Developmental reading disorder(Confirmed) Active Results Laboratory List Name Date Basic Metabolic Panel (BMP) 06/15/21 CRP 06/15/21 Influenza A&B and SARS-CoV-2 RNA Detecti on 06/15/21 CBC with Diff and Platelets 06/15/21 UA Reflex Microscopy (Urinalysis, Reflex Microscopy) 06/15/21 Most recent to oldest [Reference Range]: 1 SARS-CoV-2 Source INSPECTOR AIDE SWAB (06/15/21 2:11 PM) SARS-CoV-2 RNA Negative 1 (06/15/21 2:11 PM) Albumin-UA [NEG mg/dL] NEG mg/dL (06/15/21 1:43 PM) Anion Gap [7-16 mEq/L] 11 mEq/L (06/15/21 2:07 PM) Basophils [0-1 %] 1 % (06/15/21 2:07 PM) Bilirubin-UA [NEG] NEG (06/15/21 1:43 PM) Blood-UA [NEG] NEG (06/15/21 1:43 PM) BUN [7.3-19 mg/dL] 8 mg/dL (06/15/21 2:07 PM) Calcium [8.4-10.2 mg/dL] 9.1 mg/dL (06/15/21 2:07 PM) Chloride [98-107 mEq/L] 106 mEq/L (06/15/21 2:07 PM) CO2- Total [17-26 mEq/L] 24 mEq/L (06/15/21 2:07 PM) Creatinine [0.49-0.84 mg/dL] 0.64 mg/dL (06/15/21 2:07 PM) CRP (C-Reactive Protein) [0.0-0.5 mg/dL] <0.40 mg/dL (06/15/21 2:07 PM) Eosinophils [0-3 %] 2 % (06/15/21 2:07 PM) Glucose Blood Level [60-100 mg/dL] 94 mg /dL (06/15/21 2:07 PM) Glucose-UA [NEG mg/dL] NEG mg/dL (06/15/21 1:43 PM) HEMATOCRIT [33-51 %] 38.2 % (06/15/21 2:07 PM) HEMOGLOBIN [12.0-16.0 g/dL] 12.7 g/dL (06/15/21 2:07 PM) Ketones-UA [NEG] NEG (06/15/21:43 PM) Leukocyte Esterase [NEG] NEG (06/15/21:43 PM) Lymphocytes [25-45 %] 28 % (06/15/21 2:07 PM) MCH [25-35 pg] 28.1 pg (06/15/21 2:07 PM) MCHC [32-36 %] 33.2 % (06/15/21 2:07 PM) MCV [78-102 fL] 85 fL (06/15/21 2:07 PM) Monocytes [4-10 %] 11 % *HI* (06/15/21 2:07 PM) Neutrophils [34-64 %] 58 % (06/15/21 2:07 PM) Nitrite-UA [NEG] NEG (06/15/21 1:43 PM) Nucleated RBC's/100 WBC [0 /100 WBC] 0 / 100 WBC (06/15/21 2:07 PM) pH-UA [5-8] 6.5 (06/15/21 1:43 PM) Potassium [3.4-4.7 mEq/L] 4.3 mEq/L (06/15/21 2:07 PM) RBC [4.10-5.10 M/uL] 4.52 M/uL (06/15/21 2:07 PM) RDW [11.5-14.0 %] 13.9 % (06/15/21 2:07 PM) Sodium [138-145 mEq/L] 141 mEq/L (06/15/21 2:07 PM) Specific [place]-UA [1.001-1.030] 1.025 (06/15/21 1:43 PM) Urobilinogen-UA [NORMAL EU] NORMAL EU (06/15/21 1:43 PM) WBC [4.5-13.0 k/uL] 7.8 k/uL (06/15/21 2:07 PM) PLATELET COUNT [150-450 k/uL] 312 k/uL (06/15/21 2:07 PM) Mean Platelet Volume [7.4-10.4 fL] 9.9 f L (06/15/21 2:07 PM) Diff Type Auto (06/15/21 2:07 PM) Absolute Lymphocyte Count [1.10-6.00 k/u L] 2.210 k/uL (06/15/21 2:07 PM) Immature Granulocyte [0.0-0.3 %] 0 % (06/15/21 2:07 PM) ANC, Differential [1.50-9.50 k/uL] 4.470 k/uL (06/15/21 2:07 PM) Influenza A PCR Negative (06/15/21 2:11 PM) Influenza B PCR Negative (06/15/21 2:11 PM) Collection Method-UA VOIDED URINE (06/15/21 1:43 PM) Color-UA YELLOW (06/15/21 1:43 PM) Clarity-UA CLEAR (06/15/21 1:43 PM) 1Result Comment: The [employer] Xpert Xpress RT-PCR Assay was issued an Emergency Use Authorization (EUA) by the FDA Vital Signs Most recent to oldest [Reference Range]: 1 ED Chief Complaint History /Information Pt infected port, redness, drainage. Also c/o chills, ear pain. Was seen here 3 days, admitted to 7th floor and discharged on Monday. Mother also states that she has a bladder infection. She is on antibiotics for both infections. rooming: pt reports having polyuria since being discharged on Monday. Also here with chills, reports port area is improved. (06/15/21 2:11 PM) Temperature Oral [36-37.6 DegC] 36.8 Deg C (06/15/21 5:00 PM) Apical Heart Rate [60-100 bpm] 118 bpm *HI* (06/15/21 12:54 PM) Pulse Rate [55-90 bpm] 116 bpm *HI* (06/15/21 3:42 PM) HR via Pulse Ox [60-100 bpm] 101 bpm *HI* (06/15/21 5:00 PM) Respiratory Rate [12-16 br/min] 16 br/mi n (06/15/21 5:00 PM) Blood Pressure [90-138/45-84 mm Hg] 111/ 63mm Hg (06/15/21 5:00 PM) MAP Cuff 87 mm Hg (06/15/21 2:29 PM) BP Cuff Site RUE (06/15/21 5:00 PM) Oxygen Saturation [94-100 %] 99 % (06/15/21 5:00 PM) Oxygen Therapy Room air (06/15/21 5:00 PM) Weight 46 kg (06/15/21 12:54 PM) DOSING WEIGHT 46.000 kg (06/15/21 12:46 PM) Weight Method Actual (06/15/21 12:54 PM) [place] Body Weight Percentage 86.00 % 1 (06/15/21 12:54 PM) 1Result Comment: Automatically calculated as a result of charting a weight of 46 kg. Care Team Personnel Name: Edwin Mehta MD Address: [address] [address] Name: [facility] Address: [address]
--- OUTSIDE RECORDS SUMMARY | 2024-04-08 13:35 | XMS_ITS | Continuity of Care Document ---
Author Organization [facility] is Address [address] [place] [address]- Care Team Providers Care Drum Sander Offbearer Name Role Phone Edwin Mehta Primary Care Physician [facility] Unavailable Encounter [employer] Date(s): 11/30/20 - 11/30/20 [employer] [address] [place] [address]- Encounter Diagnosis Poor venous access(Discharge Diagnosis) - 11/30/20 Discharge Disposition: Home/Self Care Attending Physician: Shoaib Payan MD Admitting Physician: Shoaib Payan MD Referring Physician: Edwin Mehta Allergies, Adverse Reactions, Alerts Substance Reaction Severity Status Latex Precautions Active Medications busPIRone 7.5 mg oral tablet 7.5 mg = 1 TABLET PO QHS, 0 Refill(s), Maintenance Start Date: 11/30/20 Status: Ordered Motrin IB 200 mg oral tablet 400 mg = 2 TABLET PO Q6H, Stagger q3hr with acetaminophen, X 2 Days, # 16 TABLET, 0 Refill(s), Acute, Pharmacy: [facility], Diagnosis: Poor venous access Start Date: 11/30/20 Stop Date: 12/02/20 Status: Ordered traMADol 50 mg oral tablet 25 mg = 0.5 TABLET PO Q6H PRN, pain, mild, # 20 TABLET, 0 Refill(s), Acute, Pharmacy: [facility], Diagnosis: Poor venous access Start Date: 11/30/20 Stop Date: 12/14/20 Status: Ordered Tylenol 325 mg oral tablet 650 mg = 2 TABLET PO Q6H, Stagger q3hr with ibuprofen, X 3 Days, # 24 TABLET, 0 Refill(s), Acute, [facility]acy[facility], Diagnosis: Poor venous access Start Date: 11/30/20 Stop Date: 12/03/20 Status: Ordered Problem List Condition Effective Dates Status Health Status Inform ant Anxiety state(Confirmed) Active Developmental reading disorder(Confirmed) Active Vital Signs Most recent to oldest [Reference Range]: 1 Chief Complaint 14 year old female w ith autism (high functioning), anxiety/depression, RAD, and POTS requiring IV hydration every 3 weeks with difficult IV access, presenting for port placement (11/30/20 3:00 PM) Vital Signs Comments BREATH SOUNDS CLEAR & EQUAL BILATERALLY.. (11/30/20 11:20 AM) Vital Signs Reason Post-op (11/30/20 4:01 PM) Temp 1 36.1 DegC DegC (11/30/20 1:40 PM) Temperature Temporal [36.2-37.8 DegC] 36 .8 DegC (11/30/20 4:01 PM) Thermoregulation Intervention Warm blank et (11/30/20 4:01 PM) Apical Heart Rate [60-100 bpm] 100 bpm (11/30/20 11:20 AM) Pulse Rate [55-90 bpm] 82 bpm (11/30/20 2:58 PM) Heart Rate via Monitor [60-100 bpm] 86 b pm (11/30/20 2:39 PM) HR via Pulse Ox [60-100 bpm] 75 bpm (11/30/20 4:01 PM) Respiratory Rate [12-16 br/min] 16 br/mi n (11/30/20 4:01 PM) Blood Pressure [90-138/45-84 mm Hg] 126/ 84mm Hg (11/30/20 4:01 PM) MAP Cuff 55 mm Hg mm Hg (11/30/20 2:07 PM) BP Cuff Site RUE (11/30/20 4:01 PM) Oxygen Concentration 21 % (11/30/20 2:39 PM) Oxygen Saturation [94-100 %] 98 % (11/30/20 4:01 PM) Oxygen Flow Rate 10 L/min L/min (11/30/20 2:05 PM) Oxygen Therapy Room air (11/30/20 4:01 PM) Height 160 cm (11/30/20 11:20 AM) Weight 47.8 kg (11/30/20 11:20 AM) DOSING WEIGHT 47.800 kg (11/30/20 11:20 AM) [place] Body Weight 53.43 kg 1 (11/30/20 11:20 AM) [place] Body Weight Percentage 89.00 % 2 (11/30/20 11:20 AM) BSA 1.458 m2 (11/30/20 11:20 AM) Body Mass Index 18.7 kg/m2 (11/30/20 11:20 AM) BMI Percentile 20.02 % 3 (11/30/20 11:20 AM) 1Result Comment: Automatically calculated as a result of charting a height of 160 cm. 2Result Comment: Automatically calculated as a result of charting a height of 160 cm. 3Result Comment: Automatically calculated as a result of charting a BMI of 18.7
--- OUTSIDE RECORDS SUMMARY | 2024-04-08 13:36 | XMS_ITS | Continuity of Care Document ---
Author Organization [facility] is Address [address] [place] [address]- Care Team Providers Care Welder Shielded Metal Arc Name Role Phone Edwin Mehta Primary Care Physician [facility] Unavailable Encounter Q-go[employer] Date(s): 08/28/21 - 08/29/21 [id number] [place] [address]- Encounter Diagnosis Chest pain(Discharge Diagnosis) - 08/29/21 Discharge Disposition: Home/Self Care Attending Physician: Paulo MCGHEE-MPH, Maryann Johnson Admitting Physician: Paulo MCGHEE-MPH, Maryann Johnson Referring Physician: Edwin Mehta MD Allergies, Adverse Reactions, Alerts Substance Reaction Severity Status Latex Precautions Active chlorhexidine containing compounds Chlorhexidine Gluco lauren Active Biopatch Active FLUoxetine Active Problem List Condition Effective Dates Status Health Status Inform ant Anxiety(Confirmed) Active Autism spectrum disorder(Confirmed) Active Developmental reading disorder(Confirmed) Active Results Laboratory List Name Date CBC with Diff and Platelets 08/29/21 CRP 08/29/21 Most recent to oldest [Reference Range]: 1 Basophils [0-1 %] 1 % (08/29/21 3:20 AM) CRP (C-Reactive Protein) [0.0-0.5 mg/dL] <0.40 mg/dL (08/29/21 3:20 AM) Eosinophils [0-3 %] 2 % (08/29/21 3:20 AM) HEMATOCRIT [33-51 %] 32.9 % *LOW* (08/29/21 3:20 AM) HEMOGLOBIN [12.0-16.0 g/dL] 10.9 g/dL *LOW* (08/29/21 3:20 AM) Lymphocytes [25-45 %] 35 % (08/29/21 3:20 AM) MCH [25-35 pg] 28.0 pg (08/29/21 3:20 AM) MCHC [32-36 %] 33.1 % (08/29/21 3:20 AM) MCV [78-102 fL] 85 fL (08/29/21 3:20 AM) Monocytes [4-10 %] 9 % (08/29/21 3:20 AM) Neutrophils [34-64 %] 53 % (08/29/21 3:20 AM) Nucleated RBC's/100 WBC [0 /100 WBC] 0 / 100 WBC (08/29/21 3:20 AM) RBC [4.10-5.10 M/uL] 3.89 M/uL *LOW* (08/29/21 3:20 AM) RDW [11.5-14.0 %] 13.5 % (08/29/21 3:20 AM) WBC [4.5-13.0 k/uL] 6.7 k/uL (08/29/21 3:20 AM) PLATELET COUNT [150-450 k/uL] 283 k/uL (08/29/21 3:20 AM) Mean Platelet Volume [7.4-10.4 fL] 10.5 fL *HI* (08/29/21 3:20 AM) Diff Type Auto (08/29/21 3:20 AM) Absolute Lymphocyte Count [1.10-6.00 k/u L] 2.380 k/uL (08/29/21 3:20 AM) Immature Granulocyte [0.0-0.3 %] 0 % (08/29/21 3:20 AM) ANC, Differential [1.50-9.50 k/uL] 3.560 k/uL (08/29/21 3:20 AM) Vital Signs Most recent to oldest [Reference Range]: 1 ED Chief Complaint History /Information had a PICC line place on Monday, it's been causing her pain since Monday, now she's having chest pain, [id number], no difficulty breathing in triage (08/29/21 12:53 AM) Temperature Temporal [36.2-37.8 DegC] 36 .8 DegC (08/28/21 11:17 PM) Apical Heart Rate [60-100 bpm] 121 bpm *HI* (08/28/21 11:17 PM) Respiratory Rate [12-16 br/min] 16 br/mi n (08/28/21 11:17 PM) Oxygen Saturation [94-100 %] 100 % (08/28/21 11:17 PM) Oxygen Therapy Room air (08/28/21 11:17 PM) Weight 45.4 kg (08/28/21 11:17 PM) DOSING WEIGHT 45.400 kg (08/28/21 10:46 PM) Weight Method Actual (08/28/21 11:17 PM) [place] Body Weight Percentage 85.00 % 1 (08/28/21 11:17 PM) 1Result Comment: Automatically calculated as a result of charting a weight of 45.4 kg. Care Team Personnel Name: Tyson MCGHEE, Edwin Harding Address: [address] [address]- Name: [facility] Address: [address] [address]
--- OUTSIDE RECORDS SUMMARY | 2024-04-08 13:37 | XMS_ITS | Continuity of Care Document ---
Author Organization [facility] Address Unknown Care Team Providers Care Lacquer Maker Name Role Phone Edwin Mehta Primary Care Physician [facility] Unavailable Encounter [employer] Date(s): 07/07/21 - 07/18/21 [facility] Encounter Diagnosis Cellulitis of chest wall(Discharge Diagnosis) - 07/08/[address]-A-Cath in place(Discharge Diagnosis) - 07/08/21 At risk for central line-associated bloodstream infection(Discharge Diagnosis) - 07/08/21 MSSA bacteremia(Discharge Diagnosis) - 07/08/21 Anxiety(Discharge Diagnosis) - 07/08/21 Infection due to Port-A-Cath(Discharge Diagnosis) - 07/08/21 Discharge Disposition: Home/Self Care Attending Physician: Brandi Sams MD Admitting Physician: Rodrigo MCGHEE, Lou Ojeda Referring Physician: Edwin Mehta MD Allergies, Adverse Reactions, Alerts Substance Reaction Severity Status Latex Precautions Active chlorhexidine containing compounds Chlorhexidine Gluco lauren Active Biopatch Active FLUoxetine Active Medications All Day Allergy 10 mg oral tablet 10 mg = 1 TABLET PO QDay Start Date: 07/07/21 Status: Ordered Bactroban 2% topical ointment = 1 application Topically BID PRN, for irritation, # 15 g, 0 Refill(s), [id number] Start Date: 07/18/21 Stop Date: 07/25/21 Status: Ordered hydrocortisone 0.5% topical cream 1 application Topically TID PRN for rash or itching, # 14 g, 0 Refill(s), [id number] Start Date: 07/18/21 Stop Date: 07/25/21 Status: Ordered hydrOXYzine hydrochloride 10 mg oral tablet 10 mg = 1 TABLET PO TID PRN, as needed for anxiety, # 90 TABLET, 0 Refill(s), Maintenance, Pharmacy: [facility][id number] Start Date: 07/18/21 Status: Ordered hydrOXYzine hydrochloride 25 mg oral tablet 25 mg = 1 TABLET PO Q6H PRN, as needed for anxiety, # 120 TABLET, 0 Refill(s), Maintenance, Pharmacy: [facility][id number] Start Date: 07/18/21 Status: Ordered triamcinolone 0.025% topical ointment 1 application Topically BID PRN for irritation, # 15 g, 0 Refill(s), [id number] Start Date: 07/18/21 Stop Date: 07/25/21 Status: Ordered Problem List Condition Effective Dates Status Health Status Inform ant Anxiety(Confirmed) Active Autism spectrum disorder(Confirmed) Active Developmental reading disorder(Confirmed) Active Results Laboratory List Name Date Basic Metabolic Panel (BMP) 07/13/21 CBC with Diff and Platelets 07/13/21 CRP 07/13/21 CBC with Diff and Platelets 07/07/21 SARS-CoV-2 RNA Detection, Swab (COVID-19 PCR) 07/07/21 CRP 07/07/21 Comprehensive Metabolic Panel (CMP) 07/07 ESR 07/07/21 Most recent to oldest [Reference Range]: 1 2 SARS-CoV-2 Source [employer] EDUC[employer]IST SWAB (07/07/21 4:13 PM) SARS-CoV-2 RNA Negative 1 (07/07/21 4:13 PM) Albumin [4.0-4.9 g/dL] 4.1 g/dL 2 (07/07/21 4:50 PM) ALK Phosphatase [48-95 U/L] 56 U/L (07/07/21 4:50 PM) ALT [8-22 U/L] <8 U/L *LOW* (07/07/21 4:50 PM) Anion Gap [7-16 mEq/L] 10 mEq/L (07/13/21 12:41 PM) 9 mEq/L (07/07/21 4:50 PM) AST [13-26 U/L] 14 U/L (07/07/21 4:50 PM) Basophils [0-1 %] 1 % (07/13/21 12:41 PM) 1 % (07/07/21 4:50 PM) Bilirubin- Total [0.1-0.8 mg/dL] 0.4 mg/ dL (07/07/21 4:50 PM) BUN [7.3-19 mg/dL] 7 mg/dL *LOW* (07/13/21 12:41 PM) BUN [7.3-19.0 mg/dL] 8 mg/dL (07/07/21 4:50 PM) Calcium [8.4-10.2 mg/dL] 9.4 mg/dL (07/13/21 12:41 PM) 8.6 mg/dL (07/07/21 4:50 PM) Chloride [98-107 mEq/L] 107 mEq/L (07/13/21 12:41 PM) 107 mEq/L (07/07/21 4:50 PM) CO2- Total [17-26 mEq/L] 21 mEq/L (07/13/21 12:41 PM) 21 mEq/L (07/07/21 4:50 PM) Creatinine [0.49-0.84 mg/dL] 0.53 mg/dL (07/13/21 12:41 PM) 0.56 mg/dL (07/07/21 4:50 PM) CRP (C-Reactive Protein) [0.0-0.5 mg/dL] <0.40 mg/dL (07/13/21 12:41 PM) CRP (C-Reactive Protein) [0.00-0.50 mg/d L] 2.17 mg/dL *HI* (07/07/21 4:50 PM) Eosinophils [0-3 %] 6 % *HI* (07/13/21 12:41 PM) 1 % (07/07/21 4:50 PM) Glucose Blood Level [60-100 mg/dL] 85 mg /dL (07/13/21 12:41 PM) 97 mg/dL (07/07/21 4:50 PM) HEMATOCRIT [33-51 %] 36.2 % (07/13/21 12:41 PM) 35.3 % (07/07/21 4:50 PM) HEMOGLOBIN [12.0-16.0 g/dL] 12.0 g/dL (07/13/21 12:41 PM) 11.6 g/dL *LOW* (07/07/21 4:50 PM) Lymphocytes [25-45 %] 32 % (07/13/21 12:41 PM) 23 % *LOW* (07/07/21 4:50 PM) MCH [25-35 pg] 28.0 pg (07/13/21 12:41 PM) 27.8 pg (07/07/21 4:50 PM) MCHC [32-36 %] 33.1 % (07/13/21 12:41 PM) 32.9 % (07/07/21 4:50 PM) MCV [78-102 fL] 84 fL (07/13/21 12:41 PM) 85 fL (07/07/21 4:50 PM) Monocytes [4-10 %] 10 % (07/13/21 12:41 PM) 11 % *HI* (07/07/21 4:50 PM) Neutrophils [34-64 %] 51 % (07/13/21 12:41 PM) 64 % (07/07/21 4:50 PM) Nucleated RBC's/100 WBC [0 /100 WBC] 0 / 100 WBC (07/13/21 12:41 PM) 0 /100 WBC (07/07/21 4:50 PM) Potassium [3.4-4.7 mEq/L] 4.1 mEq/L (07/13/21 12:41 PM) 3.8 mEq/L (07/07/21 4:50 PM) Protein- Total [6.5-8.1 g/dL] 6.6 g/dL (07/07/21 4:50 PM) RBC [4.10-5.10 M/uL] 4.29 M/uL (07/13/21 12:41 PM) 4.17 M/uL (07/07/21 4:50 PM) RDW [11.5-14.0 %] 13.2 % (07/13/21 12:41 PM) 13.4 % (07/07/21 4:50 PM) Sedimentation Rate [0-20 mm/hr] 6 mm/hr (07/07/21 4:50 PM) Sodium [138-145 mEq/L] 138 mEq/L (07/13/21 12:41 PM) 137 mEq/L *LOW* (07/07/21 4:50 PM) WBC [4.5-13.0 k/uL] 6.1 k/uL (07/13/21 12:41 PM) 9.8 k/uL (07/07/21 4:50 PM) PLATELET COUNT [150-450 k/uL] 305 k/uL (07/13/21 12:41 PM) 293 k/uL (07/07/21 4:50 PM) Mean Platelet Volume [7.4-10.4 fL] 10.0 fL (07/13/21 12:41 PM) 10.6 fL *HI* (07/07/21 4:50 PM) Diff Type Auto (07/13/21 12:41 PM) Auto (07/07/21 4:50 PM) Absolute Lymphocyte Count [1.10-6.00 k/u L] 1.980 k/uL (07/13/21 12:41 PM) 2.230 k/uL (07/07/21 4:50 PM) Immature Granulocyte [0.0-0.3 %] 0 % (07/13/21 12:41 PM) 0 % (07/07/21 4:50 PM) ANC, Differential [1.50-9.50 k/uL] 3.120 k/uL (07/13/21 12:41 PM) 6.300 k/uL (07/07/21 4:50 PM) 1Result Comment: The [employer] Xpert Xpress RT-PCR Assay was issued an Emergency Use Authorization (EUA) by the FDA 2Result Comment: Reference ranges have changed as of February 12, 2020 due to change in instrumentation. Orders for Microbiology Reports Name Date Blood Culture 07/10/21 Blood Culture 07/09/21 Abscess Culture and Gram Stain 07/08/21 Anaerobic Culture 07/08/21 Fungal Culture 07/08/21 Blood Culture 07/08/21 Blood Culture 07/08/21 Blood Culture 07/07/21 Blood Culture 07/07/21 Microbiology Reports TEST:Blood Culture1 STATUS:Auth (Verified) BODY SITE:Peripheral Blood SOURCE:Blood COLLECTED DATE/TIME:07/10/21 7:00 AM Micro Culture CULTURE: 1. NO GROWTH 5 DAYS REPORT STATUS: FINAL 07/15/21 ORGANISM:No growth 5 days. TEST:Blood Culture2 STATUS:Auth (Verified) BODY SITE:Peripheral Blood SOURCE:Blood COLLECTED DATE/TIME:07/09/21 10:10 AM Micro Culture CULTURE: 1. NO GROWTH 5 DAYS REPORT STATUS: FINAL 07/14/21 ORGANISM:No growth 5 days. TEST:Abscess Culture3 STATUS:Auth (Verified) BODY SITE:Chest SOURCE:Abscess COLLECTED DATE/TIME:07/08/21 7:30 PM Micro Culture CULTURE: 1. 2+ STAPH AUREUS, METHICILLIN SENSITIVE , NEGATIVE FOR PBP2a 2. This test detects PBP2a protein derived from the mecA gene which confers methicillin resistance in S. aureus. It is not designed to detect rare mechanisms of resistance such as mecC. 3. Usually, penicillin resistant, oxacillin susceptible strains are resistant to penicillinase labile penicillins but susceptible to other penicillinase stable penicillins, beta lactam/beta lactamaseinhibitor combinations, cephalosporins I,II,III,IV, and carbapenems. REPORT STATUS: FINAL 07/11/21 ORGANISM:Staphylococcus aureus, methicillin sensitive TEST:Fungal Culture4 STATUS:Auth (Verified) BODY SITE:Catheter Tip SOURCE:Specified by Body Site COLLECTED DATE/TIME:07/08/21 7:30 PM Micro Culture CULTURE: 1. CULTURE NEGATIVE AFTER 4 WEEKS INCUBATION 2. Performed by [facility] [employer], [address] [place] [id number] 3. A scanned/manual report is available REPORT STATUS: FINAL 07/14/21 ORGANISM:Culture negative after 4 weeks incubation. TEST:Anaerobic Culture5 STATUS:Auth (Verified) BODY SITE:Port-a-cath SOURCE:Specified by Body Site COLLECTED DATE/TIME:07/08/21 7:30 PM Micro Culture CULTURE: 1. NO ANAEROBES ISOLATED 2. Performed by [facility] [employer], [address] [place] [address], [place] [address] 3. A scanned/manual report is available REPORT STATUS: FINAL 07/16/21 ORGANISM:No anaerobes isolated. TEST:Blood Culture6 STATUS:Auth (Verified) BODY SITE: SOURCE:Blood COLLECTED DATE/TIME:07/08/21 12:00 PM Micro Culture CULTURE: 1. NO GROWTH 5 DAYS REPORT STATUS: FINAL 07/13/21 ORGANISM:No growth 5 days. TEST:Blood Culture7 STATUS:Auth (Verified) BODY SITE:Peripheral Blood SOURCE:Blood COLLECTED DATE/TIME:07/08/21 11:56 AM Micro Culture CULTURE: 1. NO GROWTH 5 DAYS REPORT STATUS: FINAL 07/13/21 ORGANISM:No growth 5 days. TEST:Blood Culture8 STATUS:Auth (Verified) BODY SITE:Peripheral Blood SOURCE:Blood COLLECTED DATE/TIME:07/07/21 4:13 PM Micro Culture CULTURE: 1. NO GROWTH 5 DAYS REPORT STATUS: FINAL 07/12/21 ORGANISM:No growth 5 days. TEST:Blood Culture9 STATUS:Auth (Verified) BODY SITE:Port-a-cath SOURCE:Blood COLLECTED DATE/TIME:07/07/21 4:12 PM Micro Culture CULTURE: 1. STAPH AUREUS, METHICILLIN SENSITIVE Detected by [employer] Film Array Multi-Plex PCR BCID 2. mecA Not Detected Detected by [employer] Film Array Multi-Plex PCR BCID 3. Usually, penicillin resistant, oxacillin susceptible strains are resistant to penicillinase labile penicillins but susceptible to other penicillinase stable penicillins, beta lactam/beta lactamaseinhibitor combinations, cephalosporins I,II,III,IV, and carbapenems. REPORT STATUS: FINAL 07/10/21 ORGANISM:Staphylococcus aureus, methicillin sensitive INTERPRETIVE DATA 1 TRANSPORT TIME: 1.6 HOURS SPECIAL REQUESTS: ID and suceptibilities as indicated 43.9 2 TRANSPORT TIME: 0.2 HOUR SPECIAL REQUESTS: ID and suceptibilities as indicated 43.9 3 TRANSPORT TIME: 0.7 HOUR SPECIAL REQUESTS: ID and suceptibilities as indicated 4 TRANSPORT TIME: 1.1 HOURS SPECIAL REQUESTS: ID and suceptibilities as indicated 5 TRANSPORT TIME: 0.7 HOUR SPECIAL REQUESTS: ID and suceptibilities as indicated 6 TRANSPORT TIME: 0.9 HOUR SPECIAL REQUESTS: ID and suceptibilities as indicated 43.9 7 TRANSPORT TIME: 1.0 HOUR SPECIAL REQUESTS: ID and suceptibilities as indicated 43.9 8 TRANSPORT TIME: 1.7 HOURS SPECIAL REQUESTS: ID and suceptibilities as indicated 45.2 9 TRANSPORT TIME: 1.8 HOURS SPECIAL REQUESTS: ID and suceptibilities as indicated 45.2 CULTURE: Called to and read back by DR HARRIS ON 07.08.21 AT 1048. [employer] PCR results CULTURE: Called to and read back by MALENA COLUNGA, 07/08/21 AT 1052 [employer] PCR results Vital Signs Most recent to oldest [Reference Range]: 1 ED Chief Complaint History /Information Radiology was unable to access pt's port so they sent her here, pt was supposed to have her port accessed so they could inject dye into it to check if it's functioning properly skin is reddened and slightly swollen since Monday, having some pain in that area, no fevers Rooming: Hx of POTS has a port for infusions every three weeks. No fevers. Port was accessed last Monday then on Monday she began having pain, swelling redness and drainage coming from port site. (07/07/21 6:15 PM) Vital Signs Reason Routine (07/17/21 8:00 PM) Temp 1 36.3 DegC DegC (07/08/21 7:45 PM) Temperature Axillary [36-37 DegC] 36.9 D egC (07/16/21 8:00 PM) Temperature Oral [36-37.6 DegC] 36.9 Deg C (07/17/21 8:00 PM) Temperature Temporal [36.2-37.8 DegC] 36 .6 DegC (07/12/21 12:00 AM) Apical Heart Rate [60-100 bpm] 100 bpm (07/13/21 5:30 PM) Heart Rate via Monitor [60-100 bpm] 93 b pm (07/17/21 8:00 PM) HR via Pulse Ox [60-100 bpm] 92 bpm (07/14/21 10:00 PM) Respiratory Rate [12-16 br/min] 16 br/mi n (07/17/21 8:00 PM) Blood Pressure [90-138/45-84 mm Hg] 102/ 69mm Hg (07/17/21 8:00 PM) MAP Cuff 80 mm Hg (07/17/21 8:00 PM) BP Cuff Site LUE (07/17/21 8:00 PM) Oxygen Concentration 98 % (07/13/21 8:00 PM) Oxygen Saturation [94-100 %] 99 % (07/17/21 8:00 PM) Oxygen Flow Rate 8.25 L/min L/min (07/08/21 7:55 PM) Oxygen Therapy Room air (07/18/21 4:00 AM) Pulse Oximeter Site New Location right p ointer (07/09/21 10:47 AM) Height 157 cm (07/08/21 12:36 PM) Height Method Standing (07/07/21 6:15 PM) Weight 43.7 kg (07/13/21 4:30 PM) DOSING WEIGHT 43.900 kg (07/07/21 2:45 PM) Weight Method Actual 1 (07/13/21 4:30 PM) [place] Body Weight 52.09 kg 2 (07/08/21 12:36 PM) [place] Body Weight Percentage 84.00 % 3 (07/13/21 4:30 PM) BSA 1.384 m2 (07/07/21 6:15 PM) Body Mass Index 17.8 kg/m2 (07/07/21 6:15 PM) BMI Percentile 7.71 % 4 (07/07/21 6:15 PM) 1Result Comment: blue scale 2Result Comment: Automatically calculated as a result of charting a height of 157 cm. 3Result Comment: Automatically calculated as a result of charting a weight of 43.7 kg. 4Result Comment: Automatically calculated as a result of charting a BMI of 17.8 Care Team Personnel Name: Tyson MCGHEE, Edwin Harding Address: [address] [address]- Name: [facility] Address: [address] [address]
--- OUTSIDE RECORDS SUMMARY | 2024-04-08 13:37 | XMS_ITS | Continuity of Care Document ---
Author Organization [facility] Address Unknown Care Team Providers Care Bus Driver Supervisor Name Role Phone Edwin Mehta Primary Care Physician [facility] Unavailable Encounter ideeli Date(s): 07/07/21 - 07/07/21 [facility] Discharge Disposition: Home/Self Care Attending Physician: Edwin Mehta MD Admitting Physician: Edwin Mehta MD Referring Physician: Edwin Mehta MD Allergies, Adverse Reactions, Alerts Substance Reaction Severity Status Latex Precautions Active Biopatch Active FLUoxetine Active Problem List Condition Effective Dates Status Health Status Inform ant Anxiety(Confirmed) Active Autism spectrum disorder(Confirmed) Active Developmental reading disorder(Confirmed) Active Care Team Personnel Name: Edwin Mehta MD Address: [facility] [address] [place], [place] [address] Name: [facility] Address: [facility] [address]
--- OUTSIDE RECORDS SUMMARY | 2024-04-08 13:38 | XMS_ITS | Patient Health Record ---
Author Organization [facility] Address [address] [place] [address] Care Team Providers Care Fresh Foods Technician Name Role Phone Tyson MCGHEE, Edwin Primary Care Provider GARRET MCGHEE, PhD, JERZY Flores Allergies Allergen (clinical drug ingredient) Drug/Non Drug Allergy documented on EMR Reaction Allergy Type Onset Date Status fluoxetine Fluoxetine Unknown Drug Allergy Activ e Reason For Referral No Information Medications Medication SIG (Take, Route, Fr equency, Duration) Notes Start Date End Date Status Doxycycline Hyclate Active busPIRone HCl Active Problems Problem Type SNOMED Code ICD Code Onset Dates Problem Status W/U Status Risk Notes Problem Port or reservoir infection (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) Active confirmed Problem Cardiac arrhythmia (369675054) Other specified cardiac arrhythmias (I49.8) Active confirmed 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 Problem [id number] POTS (postural orthostatic tachycardia syndrome) (I49.8) Active confirmed Plan Of Treatment No Information Insurance Providers Payer Name Payer Address Payer Phone Subscriber Number Group Number Insured Name Patient Relationship to Insured Coverage Start Date Coverage End Date [facility] [address] [address] [place] [address] [id number] Raymundo Arndt Self - patient is the insured Medical (General) History Medical History History ICD Code Born @42 weeks, 7lbs Pots autism Elevated blood pressure ADD/Hyperactivity Surgical History Surgery Date(Month/Year) Tonsillectomy Hospitalization History Reason Date(Month/Year) Pots
--- OUTSIDE RECORDS SUMMARY | 2024-04-08 13:38 | XMS_ITS | Continuity of Care Document ---
Author Organization [facility] Address Unknown Care Team Providers Care Residential Building Inspector Name Role Phone Edwin Mehta Primary Care Physician [facility] Unavailable Encounter [employer] Date(s): 08/03/21 - 08/03/21 [facility] Encounter Diagnosis Rash(Discharge Diagnosis) - 08/03/21 Parental concern about child(Discharge Diagnosis) - 08/03/21 Discharge Disposition: Home/Self Care Attending Physician: Katharine Pickering MD Admitting Physician: Shivam Lemus MD, Katharine Referring Physician: Edwin Mehta MD Allergies, Adverse Reactions, Alerts Substance Reaction Severity Status Latex Precautions Active chlorhexidine containing compounds Chlorhexidine Gluco lauren Active FLUoxetine Active Biopatch Active Problem List Condition Effective Dates Status Health Status Inform ant Anxiety(Confirmed) Active Autism spectrum disorder(Confirmed) Active Developmental reading disorder(Confirmed) Active Vital Signs Most recent to oldest [Reference Range]: 1 ED Chief Complaint History /Information pt with hx of central port removal for infection on 07/08. Today home nurse came for visit around 1500 and instructed pt to be evaluated for infection in the ED. Pt has had a rash on her forearms since May. and seen multiple MD for this. Pt has been c/o MENA, sore throat, runny nose, and low grade fever. Sat. night seen at [facility] and strep and covid negative. Red area at port site now as well. rooming assessment as above. port site healing and no redness at scar. rough raised dark pink area about 6 cm below scar, no itch or pain. pt refuses to change into gown. (08/03/21 1:48 AM) Temperature Axillary [36-37 DegC] 36.8 D egC (08/03/21 12:24 AM) Apical Heart Rate [60-100 bpm] 100 bpm (08/03/21 12:24 AM) Respiratory Rate [12-16 br/min] 18 br/mi n *HI* (08/03/21 12:24 AM) Blood Pressure [90-138/45-84 mm Hg] 108/ 80mm Hg (08/03/21 12:24 AM) Oxygen Saturation [94-100 %] 100 % (08/03/21 12:24 AM) Oxygen Therapy Room air (08/03/21 12:24 AM) Weight 44 kg (08/03/21 12:24 AM) DOSING WEIGHT 44.000 kg (08/03/21 12:24 AM) [place] Body Weight Percentage 84.00 % 1 (08/03/21 12:24 AM) 1Result Comment: Automatically calculated as a result of charting a weight of 44 kg. Care Team Personnel Name: Tyson MCGHEE, Edwin Harding Address: [address] [address] Name: [facility] Address: [address] [address]
--- NOTE | 2024-04-09 09:45 | CRLHL7_ITS ---
For Patients: As a result of the Century Cures Act, medical imaging exams and procedure reports are released immediately into your electronic medical record. You may view this report before your referring provider. If you have questions, please contact your health care provider. OBSTETRICAL ULTRASOUND ??? ANATOMY SURVEY INDICATION: anatomy survey. POLLO by LMP: 08/28/2024 GESTATIONAL AGE: 19 weeks 6 days TECHNIQUE: Transabdominal pelvic ultrasound. COMPARISON: 01/23/2024 FINDINGS: position: Vertex, longitudinal Cervix: Visualized Placenta position: Fundal, posterior Placenta tip to internal os: 6.9 cm Umbilical cord: 3-vessel cord Placental insertion: Eccentric; 2.5 cm right wall Amniotic fluid: 3.1 cm SDP ANATOMY SURVEY: Observed Structures Cerebellum: 1.9 cm, 19 weeks 6 days Cisterna magna: 3.7 mm Nuchal fold: 4 mm Lateral ventricle: 7 mm CSP Midline falx Choroid plexus Spine Stomach Abdominal cord insert Urinary bladder Kidneys Diaphragm Nose/lips Orbital view Profile Upper extremities Lower extremities Hands Feet 4-chamber heart LVOT RVOT 3VV 3VTV BIOMETRY BPD: 4.6 cm, 19 weeks 6 days, 52% HC: 17.1 cm, 19 weeks 5 days, 34% AC: 14.4 cm, 19 weeks 5 days, 40% FL: 3.1 cm, 19 weeks 4 days, 30% FL/AC: 21.30% HC/AC ratio: 1.19 heart rate: 150 bpm age by this ultrasound: 19 weeks 5 days POLLO by this ultrasound: 08/29/2024 Estimated weight: 305 grams (11 ounces) Percentile by POLLO: 34% IMPRESSION: Single live intrauterine gestation. No gross anomalies visualized. The placental cord insertion is 2.5 cm from the placental edge along the right uterine wall. GENIE PEARCE M.D. Diagnostic/Breast Radiologist [email or web address] Transcribed: 6:[address]/Dictated by: Genie Pearce MD @ 04/11/2024 6:21:00 AM (Electronically Signed)
== END 2024-04-09 09:40 | disposition home or self-care (01) ==
PROVIDERS: Visit Provider Obstetrics & Gynecology
DX: Z34.92 Encounter for supervision of normal pregnancy, unspecified, second trimester (principal); Z3A.19 19 weeks gestation of pregnancy
CPT/HCPCS: 76805

== ENCOUNTER 2024-04-22 11:17 | Outpatient (RCR) | payer MEDICAID, SELFPAY ==
--- NOTE | 2024-04-12 14:36 | URNOTE ---
Request received for authorization for [employer] ([id number]). Prior authorization is not required per [facility] Fee Schedule, and services are based on medical necessity.
[2024-04-22 11:30] VITALS: BP 119/81; PULSE 129; RESP 14; TEMP 37.2; O2SAT 99
[2024-04-22 11:45] VITALS: BP 118/83; PULSE 120
[2024-04-22 11:46] VITALS: BP 111/77; PULSE 134
[2024-04-22] MEDS: IRON DEXTRAN COMPLEX 25 MG in 0.9 % SODIUM CHLORIDE 100 ml 100 ML 301.5 MG IVPB (12:23)
[2024-04-22 12:30] VITALS: BP 112/75; PULSE 100; RESP 14; TEMP 36.7; O2SAT 99
[2024-04-22] MEDS: IRON DEXTRAN COMPLEX 975 MG in 0.9 % SODIUM CHLORIDE 250 ml 250 ML 269.5 MG IVPB (13:51)
--- NOTE | 2024-04-22 14:35 | ONC.NURNOTE ---
Pts. orthostatics 118/83 sitting. 111/77 standing. She states she is voiding well and urine light yellow. She states she has POTS and her normal heartrate is 120. Ok to treat per Dr. Angel.
[2024-04-22] MEDS: SODIUM CHLORIDE 0.9 % (FLUSH) 10 ML SYRINGE IVF (14:37)
[2024-04-22 15:00] VITALS: BP 102/71; PULSE 105; RESP 14; TEMP 36.4; O2SAT 99
[2024-04-22 15:30] VITALS: BP 124/85; PULSE 100; RESP 14; TEMP 36.9; O2SAT 0
== END 2024-10-19 23:59 | disposition home or self-care (01) ==
LOC: CCIC 11:17
PROVIDERS: Visit Provider Clinical Nurse Specialist
DX: O99.012 Anemia complicating pregnancy, second trimester (principal); D50.9 Iron deficiency anemia, unspecified
CPT/HCPCS: 96365; 96366; J1750; J7050

== ENCOUNTER 2024-05-02 16:07 | Outpatient (CLI) | payer MEDICAID, SELFPAY ==
[2024-05-02] VITALS (11 sets, daily range): BP systolic 110; BP diastolic 73; PULSE 8–116; RESP 17; TEMP 36.5; O2SAT 85–100
--- NOTE | 2024-05-02 18:07 | CRLHL7_ITS ---
For Patients: As a result of the Century Cures Act, medical imaging exams and procedure reports are released immediately into your electronic medical record. You may view this report before your referring provider. If you have questions, please contact your health care provider. INDICATION: Abdominal pain. TECHNIQUE: Ultrasound OB pelvis transabdominal. Real-time kaur-scale imaging of the fetus was performed as well as color Doppler and spectral Doppler analysis of the umbilical artery. COMPARISON: 04/09/2024. FINDINGS: Intrauterine gestation: Single. heart rate: 137 bpm. Presentation: Breech. Placenta: Posterior without previa. Cervix: 4 cm. Amniotic fluid: Normal with a deepest pocket of 3.5 cm. IMPRESSION.: Viable intrauterine . No abnormalities seen. Dictated by Louie Eastman MD @ 05/02/2024 7:33:15 PM (Electronically Signed)
[2024-05-02 18:09] LABS: Appearance Urine Cloudy (Clear); Bilirubin Urine Negative (Negative); Blood Urine Trace-intact (Negative); Color Urine Yellow (Yellow); Glucose Urine Negative (Negative); Ketones Urine Negative (Negative); Leukocyte Esterase Urine Negative (Negative); Nitrite Urine Negative (Negative); Protein Urine 2+ (Negative); Specific Gravity Urine 1.025 (1.000-1.030); Urobilinogen Urine 0.2 (0.2-1.0)
[2024-05-02 18:21] LABS: Bacteria Urine Many; Clue Cells No Clue Cells Seen (None Seen); Squamous Epithelial Cell Urine Moderate (None-Few); Trichomonas No Trichomonas Seen (None Seen); Yeast No Yeast Seen (None Seen)
[2024-05-02 18:25] LABS: Fetal Fibronectin* Negative (Negative)
--- NOTE | 2024-05-02 19:03 | PC.OBNST ---
NST Note NST Note Start: 05/02/24 17:04 Freq: ONCE Status: Active Protocol: Document 05/02/24 17:04 [facility] (Rec: 05/02/24 19:03 [facility] [id number]) NST Note 1 Para (# of births) 0 EDC 08/28/24 Gestational Age In Weeks & Days 23 Weeks & 1 Days Patient Presented with Complaint(s) of Contractions/cramping Other Complaints persistent abdominal pain Reactive Yes Appropriate for Gestational Age Yes STEPH Rich RN Date 05/02/24 Reactive Yes Appropriate for Gestational Age Yes STEPH Pinedo RN Date 05/02/24 OB NST charge Yes Complete NST Note via Write Note Yes The provider's electronic signature indicates the NST is reactive/appropriate for gestational age. *Note to provider: If an addendum is required, open the patient's chart and click on the note under the Nurse/Allied Health tab.
== END 2024-05-02 19:04 | disposition home or self-care (01) ==
LOC: OB OUT 16:15 → OB 16:53
PROVIDERS: Visit Provider Obstetrics & Gynecology
DX: O47.02 False labor before 37 completed weeks of gestation, second trimester (principal); Z3A.23 23 weeks gestation of pregnancy
CPT/HCPCS: 59025; 76815; 81001; 81003; 84112; 87086; 87210; 93976; G0463

== ENCOUNTER 2024-06-04 14:45 | Outpatient (CLI) | payer MEDICAID, SELFPAY | END 2024-06-04 14:46 | disposition home or self-care (01) | LOC: NFLDREF 06-08 04:04 | PROVIDERS: Visit Provider Obstetrics & Gynecology | DX: Z34.92 Encounter for supervision of normal pregnancy, unspecified, second trimester (principal); Z3A.27 27 weeks gestation of pregnancy | CPT/HCPCS: 86592 ==

== ENCOUNTER 2024-06-18 15:26 | Outpatient (CLI) | payer MEDICAID, SELFPAY ==
[2024-06-18] VITALS (14 sets, daily range): BP systolic 118–129; BP diastolic 74–81; PULSE 82–141; RESP 16; TEMP 37; O2SAT 93–100
[2024-06-18] MEDS: LACTATED RINGERS 1000 ML 1,000 ML IV (15:56)
[2024-06-18 16:22] LABS: Basophils Absolute Auto 0.02 K/uL (0.00-0.30); Basophils Percent Auto 0.2 % (0.0-3.0); Eosinophils Absolute Auto 0.02 K/uL (0.00-0.50); Eosinophils Percent Auto 0.2 % (0.0-7.0); Hematocrit 29.6 % (33.0-51.0); Hemoglobin* 9.9 gm/dL (12.0-16.0); Immature Granulocytes Abs Auto 0.42 K/uL (0.00-0.30); Immature Granulocytes Pct Auto 4.5 %; Lymphocytes Percent Auto 12.9 % (20-44); Mean Corpuscular HGB Conc 33 gm/dL (32-36); Mean Corpuscular Hemoglobin 31 pg (26-34); Mean Corpuscular Volume 92 fL (80-100); Monocytes Percent Auto 6.6 % (0.0-11.0); Neutrophils Percent Auto 75.6 % (42.0-72.0); Platelet Count* 179 K/uL (140-440); RDW Coefficient of Variation % 14.8 % (11.5-15.5); Red Blood Count 3.23 m/uL (4.00-5.20); White Blood Count* 9.28 K/uL (4.50-11.00)
[2024-06-18 16:24] LABS: Appearance Urine Clear (Clear); Bilirubin Urine Negative (Negative); Blood Urine Negative (Negative); Color Urine Yellow (Yellow); Glucose Urine Negative (Negative); Ketones Urine Negative (Negative); Leukocyte Esterase Urine Trace (Negative); Nitrite Urine Negative (Negative); Protein Urine Negative (Negative); Specific Gravity Urine 1.015 (1.000-1.030); Urobilinogen Urine 0.2 (0.2-1.0); pH Urine 7.5 (5.0-8.5)
[2024-06-18 16:28] LABS: Slide Review Reflex Yes
[2024-06-18 16:35] LABS: Albumin* 3.8 g/dL (3.3-5.0)
[2024-06-18 16:36] LABS: Chloride* 102 mmol/L (96-114); Potassium* 3.7 mmol/L (3.6-5.1); Sodium* 134 mmol/L (135-149)
[2024-06-18 16:38] LABS: Alkaline Phosphatase* 56 U/L (40-150); Aspartate Amino Transferase* 18 U/L (12-35); Bilirubin Total* 0.3 mg/dL (0.1-1.5); Blood Urea Nitrogen* 4 mg/dL (5-24); Carbon Dioxide* 23 mmol/L (20-32); Creatinine* 0.5 mg/dL (0.5-1.5); Estimated Glomerular Filt Rate 138 ml/min; Total Protein* 6.6 g/dL (6.0-8.3)
[2024-06-18 16:39] LABS: Alanine Aminotransferase* 11 U/L (4-35); Anion Gap 9 mEq/L (7-15); Calcium* 9.2 mg/dL (8.4-10.6); Glucose* 88 mg/dL (60-115)
[2024-06-18 17:09] LABS: Bacteria Urine Moderate; RBC Urine 0-2 (0-2); Squamous Epithelial Cell Urine Few (None-Few); WBC Clumps Urine Moderate
[2024-06-18 17:10] LABS: Amorphous Sediment Urine Moderate
--- NOTE | 2024-06-18 17:16 | PC.OBNST ---
NST Note NST Note Start: 06/18/24 15:29 Freq: ONCE Status: Active Protocol: Document 06/18/24 17:10 [facility] (Rec: 06/18/24 17:15 CUSANGE[facility]AY [id number]) NST Note 1 Para (# of births) 0 EDC 08/29/24 Gestational Age In Weeks & Days 29 Weeks & 5 Days Other Complaints Pt has POTS and had an increased pulse of 132 in the clinic. Reactive Yes Appropriate for Gestational Age Yes RN Chinyere Alcantara RN Date 06/18/24 Reactive Yes Appropriate for Gestational Age Yes STEPH Metz RN Date 06/18/24 OB NST charge Yes Complete NST Note via Write Note Yes The provider's electronic signature indicates the NST is reactive/appropriate for gestational age. *Note to provider: If an addendum is required, open the patient's chart and click on the note under the Nurse/Allied Health tab.
[2024-06-18 17:20] LABS: Slide Review Acceptable Review (Acceptable)
[2024-06-18 17:42] LABS: Total Protein Urine 17 mg/dL
[2024-06-18 17:44] LABS: Creatinine Urine 53.2 mg/dL; Protein Creatinine Ratio Urine 0.32 (0-0.19)
== END 2024-06-18 17:10 | disposition home or self-care (01) ==
LOC: OB OUT 15:27 → OB 15:29
PROVIDERS: Obstetrics & Gynecology; Visit Provider Obstetrics & Gynecology
DX: O26.893 Other specified pregnancy related conditions, third trimester (principal); I49.8 Other specified cardiac arrhythmias; Z3A.29 29 weeks gestation of pregnancy
CPT/HCPCS: 36415; 59025; 80053; 81001; 81003; 82570; 84156; 85025; 87086; G0463; J7120

== ENCOUNTER 2024-07-02 13:58 | Outpatient (CLI) | payer MEDICAID, SELFPAY ==
--- NOTE | 2024-07-02 14:00 | CRLHL7_ITS ---
For Patients: As a result of the Cures Act, medical imaging exams and procedure reports are released immediately into your electronic medical record. You may view this report before your referring provider. If you have questions, please contact your health care provider. OBSTETRICAL ULTRASOUND ??? BIOPHYSICAL PROFILE, FOLLOW-UP INDICATION: Growth. Fluid. Biophysical profile. CLINICAL HISTORY: LMP: 11/22/2023 POLLO by LMP: 08/28/2024 Gestational Age by POLLO: 31 weeks 6 days COMPARISON: 05/02/2024, 04/09/2024, 01/23/2024 TECHNIQUE: Real-time kaur-scale imaging of the fetus was performed transabdominal. FINDINGS: Fetus: Single Cervix: Not visualized positioning: Vertex Amniotic fluid: 4.6 cm SDP BIOPHYSICAL PROFILE: Gross body movements: 2 tone: 2 Respiratory activity: 2 Amniotic fluid SDP: 2 Total score: 8 Placenta technique: Transabdominal Placenta position: Posterior heart rate: 145 bpm BIOMETRY: BPD: 8.2 cm, 33 weeks 0 days, 74% HC: 29.8 cm, 33 weeks 0 days, 45% AC: 27.8 cm, 31 weeks 6 days, 47% FL: 5.9 cm, 30 weeks 5 days, 11% FL/AC Ratio: 21.1% HC/AC ratio: 1.1 EFW: 1816 grams; 4 lbs. 0 oz. age by this ultrasound: 32 weeks 1 day POLLO by this ultrasound: 08/26/2024 Percentile by POLLO: 33% IMPRESSION: 1. Normal biophysical profile of 11/22. 2. Sonographic gestational age is 32 weeks 1 day and sonographic due date is 08/26/2024. Good correlation with dates. 3. Estimated weight is 33rd percentile. Abdominal circumference is 47th percentile. JARED LOZANO M.D. Diagnostic Radiologist [email or web address] Transcribed: 5:04p RD/Dictated by: Jared Lozano MD @ 07/02/2024 3:26:00 PM (Electronically Signed)
== END 2024-07-02 13:59 | disposition home or self-care (01) ==
LOC: US 13:59
PROVIDERS: Visit Provider Obstetrics & Gynecology
DX: O16.3 Unspecified maternal hypertension, third trimester (principal); Z3A.32 32 weeks gestation of pregnancy
CPT/HCPCS: 76816; 76819

== ENCOUNTER 2024-07-24 12:21 | Outpatient (CLI) | payer MEDICAID, SELFPAY ==
[2024-07-24 13:17] LABS: Clue Cells <20% Clue Cells Seen (None Seen); Trichomonas No Trichomonas Seen (None Seen); Yeast No Yeast Seen (None Seen)
[2024-07-24 13:18] LABS: Appearance Urine Clear (Clear); Bilirubin Urine Negative (Negative); Blood Urine 2+ (Negative); Color Urine Yellow (Yellow); Glucose Urine Negative (Negative); Ketones Urine Negative (Negative); Leukocyte Esterase Urine 1+ (Negative); Nitrite Urine Negative (Negative); Protein Urine 1+ (Negative); Specific Gravity Urine 1.015 (1.000-1.030); Urobilinogen Urine 0.2 (0.2-1.0)
[2024-07-24 13:32] LABS: Bacteria Urine Moderate
--- NOTE | 2024-07-24 14:34 | PC.OBNST ---
NST Note NST Note Start: 07/24/24 12:31 Freq: ONCE Status: Active Protocol: Document 07/24/24 12:50 [facility] (Rec: 07/24/24 14:33 [facility] [id number]) NST Note 1 Para (# of births) 0 EDC 08/28/24 Gestational Age In Weeks & Days 35 Weeks & 0 Days Patient Presented with Complaint(s) of Contractions/cramping Other Complaints Nausea vomiting was seen in the clinic prior to coming to the center Reactive Yes Appropriate for Gestational Age Yes RN Cathryn Lazaro RN Date 07/24/24 Reactive Yes Appropriate for Gestational Age Yes STEPH Phoenix RN Date 07/24/24 OB NST charge Yes Complete NST Note via Write Note Yes The provider's electronic signature indicates the NST is reactive/appropriate for gestational age. *Note to provider: If an addendum is required, open the patient's chart and click on the note under the Nurse/Allied Health tab.
--- NOTE | 2024-07-24 16:33 | P.OBLDTN_ITS ---
OB - Triage/Final Diagnosis Visit Information Date Seen: 07/24/24 Date of evaluation: 07/24/24 Narrative: The patient is a 18 year old 1 para 0 at 35 weeks gestation by LMP, who presents with contractions. She had been evaluated in the [facility] for routine obstetric visit, and stated that she had been experiencing menstrual like cramping consistently over the last week. She also has been experiencing vomiting, an one day recently, states that she vomited about 50 times. She does admit to some reflux, but has not taken any medications for this. She has POTS, and this has been under very poor control. In the clinic, it was suspected that she was dehydrated, and she was given 1000 mL LR before she was sent to the center for further evaluation. A nonstress test was performed which was reactive and reassuring, however contractions were noted, initially at 7 minute intervals, and then at 3-4 minute intervals. She is unaware of the contractions, only feeling cramping. Her fetus is active. Urinalysis was obtained, which was slightly suspicious for UTI. As the patient denies dysuria, will await urine culture before making a decision to treat with antibiotics. Wet prep was obtained, which was negative. GBS swab was obtained, pending. The patient was administered additional IV fluids. monitoring continued to be reassuring, and uterine contractions spaced. She was discharged home in stable condition with instructions to follow up in the [facility] as scheduled next week. Discussed safe OTC medications that she can use for reflux, which is likely contributing to her vomiting. Evaluation Cervical dilation (cm): 0 Laboratory results: Laboratory Tests 07/24/24 07/24/24 Range/Units Unknown 12:39 Urine Color Yellow (Yellow) Urine Appearance Clear (Clear) Urine pH 8.0 (5.0-8.5) Ur Specific [place] 1.015 (1.000-1.030) Urine Protein 1+ A (Negative) Urine Glucose (UA) Negative (Negative) Urine Ketones Negative (Negative) Urine Blood 2+ A (Negative) Urine Nitrite Negative (Negative) Urine Bilirubin Negative (Negative) Urine Urobilinogen 0.2 (0.2-1.0) Ur Leukocyte Esterase 1+ A (Negative) Urine RBC 2-5 A (0-2) Urine WBC 10-25 A (0-5) Ur Squamous Epith Cells None (None-Few) Urine Bacteria Moderate A (None) Vaginal Trichomonas No Trichomonas Seen (None Seen) Vaginal Yeast No Yeast Seen (None Seen) Vaginal Clue Cells <20% Clue Cells Seen A (None Seen) Group B Strep DNA Pending Comments: Cervical exam per rn: External os 1 cm, internal os closed. Fetus (Single) Heart Rate Baseline: 135 Pricer Variability: Moderate (6-25) Monitor Accelerations: Present Monitor Decelerations: None Final Diagnosis (1) contractions: Status: Acute
[2024-07-25 12:55] LABS: Strep B DNA Probe POSITIVE (Negative)
[2024-07-25 13:02] LABS: Strep B Susceptibility Needed? No
== END 2024-07-24 13:53 | disposition home or self-care (01) ==
LOC: OB OUT 12:22 → OB 12:22
PROVIDERS: Visit Provider Obstetrics & Gynecology
DX: O47.03 False labor before 37 completed weeks of gestation, third trimester (principal); Z3A.35 35 weeks gestation of pregnancy
CPT/HCPCS: 59025; 81001; 81003; 87081; 87086; 87210; 87653; G0463

== ENCOUNTER 2024-07-31 12:53 | Outpatient (CLI) | payer MEDICAID, SELFPAY ==
--- NOTE | 2024-07-31 13:00 | CRLHL7_ITS ---
For Patients: As a result of the Century Cures Act, medical imaging exams and procedure reports are released immediately into your electronic medical record. You may view this report before your referring provider. If you have questions, please contact your health care provider. OB ULTRASOUND BIOPHYSICAL PROFILE LMP: 11/22/2023. POLLO by LMP: 08/28/2024. GA: 36 w, 0 d. Single. Comparison: 07/02/2024, 05/02/2024, 04/09/2024. INDICATION: POTS-Growth/BPP TECHNIQUE: Real time kaur scale imaging of the fetus was performed. Transabdominal. CERVIX: Not visualized. POSITIONING: Vertex. AMNIOTIC FLUID: 5.8 cm. SDP (N: greater than 2 x 1 cm) BIOPHYSICAL PROFILE: Total score: 8. Gross body movements: 2. tone: 2. Respiratory activity: 2. Amniotic fluid: 2. (SDP N: greater than 2 x 1 cm) PLACENTA: Technique: Transabdominal. PLACENTA POSITION: Posterior. DOPPLER: heart rate: 133 bpm. BIOMETRY: BPD: 9.0 cm. 36 w, 3 d, 69.9 percent. HC: 32.5 cm. 36 w, 6 d, 38.9 percent. AC: 31.6 cm. 35 w, 4 d, 46.6 percent. FL: 6.3 cm. 32 w, 4 d, <3 percent. FL/AC ratio: 19.9 percent. HC/AC ratio: 1.0. EFW: 2563 g. Weight: 5 lbs, 10 oz. age by this US: 35 w, 3 d. POLLO by this US: 09/01/2024. Percentile by POLLO: 24.2 percent. IMPRESSION: 1. Sonographic gestational age 35 weeks 3 days and sonographic due date 09/01/2024. Sonographic age is 4 days behind the clinical age. 2. Estimated weight 24th percentile. Abdominal circumference 47th percent. 3. Femur length 3rd percentile. Possible narrowing of the aortic arch at the isthmus. 4. Biophysical profile 11/22. Jared Carlos M.D. Diagnostic Radiologist [email or web address] SP/Dictated by: Jared Carlos MD @ 08/01/2024 8:17:00 PM (Electronically Signed)
== END 2024-07-31 12:54 | disposition home or self-care (01) ==
LOC: US 12:54
PROVIDERS: Visit Provider Obstetrics & Gynecology
DX: O99.013 Anemia complicating pregnancy, third trimester (principal); Z3A.35 35 weeks gestation of pregnancy
CPT/HCPCS: 76816; 76819

== ENCOUNTER 2024-08-22 12:30 | Inpatient (IN) | payer MEDICAID, SELFPAY ==
[2024-08-22] VITALS (9 sets, daily range): BP systolic 110–132; BP diastolic 66–86; PULSE 94–126; RESP 16–18; TEMP 36.6–36.9; O2SAT 100
[2024-08-22 12:14] LABS: Amnisure Rom* POSITIVE
[2024-08-22 13:21] LABS: Basophils Absolute Auto 0.03 K/uL (0.00-0.30); Basophils Percent Auto 0.3 % (0.0-3.0); Eosinophils Absolute Auto 0.03 K/uL (0.00-0.50); Eosinophils Percent Auto 0.3 % (0.0-7.0); Immature Granulocytes Abs Auto 0.23 K/uL (0.00-0.30); Immature Granulocytes Pct Auto 2.2 %; Lymphocytes Percent Auto 12.7 % (20-44); Mean Corpuscular HGB Conc 34 gm/dL (32-36); Mean Corpuscular Hemoglobin 31 pg (26-34); Mean Corpuscular Volume 90 fL (80-100); Neutrophils Percent Auto 77.5 % (42.0-72.0); Platelet Count* 236 K/uL (140-440); RDW Coefficient of Variation % 14.1 % (11.5-15.5); Red Blood Count 3.56 m/uL (4.00-5.20); White Blood Count* 10.26 K/uL (4.50-11.00)
[2024-08-22 13:24] LABS: Slide Review Reflex No
[2024-08-22] MEDS: AMPICILLIN 2 GM in 0.9 % SODIUM CHLORIDE Mini-bag 100 ML IVPB (13:40)
[2024-08-22] MEDS: LACTATED RINGERS 1000 ML 1,000 ML 125 ML IV (13:41)
--- NOTE | 2024-08-22 16:24 | P.LDBA_ITS ---
Subjective History of Present Illness Date Seen: 08/22/24 Narrative: Patient is being admitted to Labor and Delivery for delivery after PROM. She is a 18 year old at 39 1/7 weeks gestation. Her full history and physical was dictated by Dr. Garcia on 08/07/24. Please see this for details. Patient states that around 0930 this morning she felt watery like discharge, was invited to come in for evaluation and found grossly ruptured and a positive AmniSure test. Specific Issues/Plans G 1 P 0 Partner:??Gregg H&P completed by Radha on 08/07/2024?? #Anemia * Hgb at 9.5mg/dL 04/09/24 * Iron supplement recommended, but upon further clarification, patient completed IV iron infusion on 04/22/24. * Re check Hgb at her 28 week visit: 10.5 (06/04/24) * Hemoglobin 9.9 on 06/18/2024 * 34 week Hgb: 10.9 - pt does not tolerate oral iron due to her POTS/dizziness * Stable at 10.9 at 37 weeks * Recheck on admission to the Center #POTS * Past treatments have included regular IV fluid hydration through a central port, ultimately discontinued due to infection. Also tried compression stockings (ineffective), beta-selene (made her feel weak/tired), and a PICC line (didn't work properly). * Labs: 06/18/2024 sodium 134, potassium 3.7 * Recommended that she try wearing a maternity support during the daytime hours to reduce symptoms that could be exacerbated by venous pooling. * The patient has had improvement in symptoms with IV fluid hydration through a peripheral IV, but this only lasts for a day. Consider placement of a midline IV with daily IV fluid hydration with LR, 1000 mL. Referral entered. wrapping checker to coordinate and contact patient. Patient ultimately declined peer * Neuro PT recommended. Spoke with physical therapist at [facility]. Patient scheduled, but had canceled due to illness. Will reschedule. * Weekly testing ongoing #Autism Spectrum Disorder # Longstanding generalized anxiety disorder * MARIANGEL 17, PHQ-9 = 11 at first OB * Previously used Lexapro, buspirone, hydroxyzine. She has tried several SSRIs in the past. Allergy noted to fluoxetine. # increased BP without diagnosis of pre-eclampsia * Labs 06/18/2024: Platelets 179, AST 18, ALT 11, creatinine 0.5, urine P/C 0.32 Imaging:? 1st trimester: 01/23/2024 8w6d consistent with US, Small OMRA, Hemorrhagic cyst of rt ovary noted. Anatomy scan: FAS: EFW 34%tile, AC 40%tile. SDP 3.1 cm. Posterior fundal, eccentric cord insertion (2.5 cm). 3 vessel cord. Cervix is closed with at 3.33 cm. 07/02/2024: EFW 1816 g or 4 lb 0 oz (33%), BPD 74%, HC 45%, AC 47%, FL 11%, SDP 4.6 cm, BPP 8/8, vertex 07/31/2024: EFW 5 lb 10 oz (24%), BPD 70%, HC 39%, AC 47%, FL <3%, SDP 5.8 cm, BPP 8/8, vertex. Possible narrowing of the aortic arch at the isthmus: MFM referral placed. Vaccinations: COVID: Declines Flu: Declines TDAP: Declines RSV: N/A 32wk Mental Health: PHQ-9 12 MARIANGEL-7 16 Hgb: 07/17/24 GBS: POSITIVE OB - Problem Based A/P Additional Plan (1) : Status: Acute (2) Premature rupture of membranes: Status: Acute Plan 1. PROM, GBS positive will start antibiotics per protocol. 2. Pain management as per patient preference and as needed. 3. Offered IV Oxytocin at around noon today, declined wants to wait a bit longer, will re check cervix at 6pm. Discussed reasoning for medication therapy to try to decrease timeframe from SROM to delivery and hopefully decrease risk of infection. 4. History of anemia but hemoglobin 11 upon admission. OB Exam Physical Exam Vital signs: Temp Pulse BP 98.3 F 94 132/81 08/22/24 13:40 08/22/24 16:01 08/22/24 16:01 Detailed Labor and Delivery Exam Patient Gravid: Yes Dilation (cm): 1 Effacement (%): 50 Fetus (Single) Station: -2 Amniotic Membrane Status: SROM Amniotic Membrane Fluid Description: Clear Heart Rate Baseline: 135 Monitor Accelerations: Present Monitor Decelerations: None Doctor Of Podiatric Medicine Variability: Moderate (6-25)
[2024-08-22] MEDS: AMPICILLIN 1 GM in 0.9 % SODIUM CHLORIDE Mini-bag 100 ML IVPB ×2 (17:32→21:28)
[2024-08-23] VITALS (15 sets, daily range): BP systolic 114–134; BP diastolic 57–87; PULSE 74–112; RESP 16–18; TEMP 36.6–36.9; O2SAT 97–99
[2024-08-23] MEDS: OXYTOCIN 30 unit/500 ML in NS 30 UNIT/500 ML BAG 300 UNIT IVPB (00:02)
--- NOTE | 2024-08-23 00:16 | W.PM.OBVAGDE ---
OB Procedure Vag Delivery Mother Details Mother Details: The patient is a 18 year-old, 1, Para 0, admitted on 08/22/24 at 39 1/7 Days gestation after SROM. Upon admission patient was found 1cm but with regular pattern of contractions that progressively got more intense and continued to help her make cervical change. : 1 Para: 1 Weeks Gestation: 39.2 Admission Date: 08/22/24 Additional Details Amniotic Membrane Status: SROM Amniotic Membrane Rupture Date: 08/22/24 Amniotic Membrane Rupture Time: 09:30 Amniotic Membrane Fluid Description: Clear Analgesia/Anesthesia Type: Nitrous Oxide Waterbirth: No Pitcoin: No Intrapartal Events: None Labor Onset: 22:30 Complete: 23:20 Pushin:20 Heart: heart tones during second stage were category 2, variable decelerations noted while pushing but recovered normally. Delivery Details Delivery Date: 08/23/24 Delivery Time: 00:01 Route of delivery: Gender: Male Viability: Alive; Heart Rate Present Position at Delivery: OA Delivery Details: Delivered via spontaneous vaginal delivery. was placed on maternal abdomen.? Cord was clamped and cut after a 30-60 second delay. Nose and mouth were bulb suctioned.? Infant weight pending. 1 Minute Interval Total Score: 9 5 Minute Interval Total Score: 9 Additional Details Shoulder Dystocia: No Placenta Delivery Time: 00:08 Placental Delivery Description: Spontaneous Procedure Done: Global Blood Loss: 100 Laceration: None Episiotomy Description: None Blood Loss Measurement Type: QBL Bakri Used: No Sponge/Need Count Correct: Yes Cord Vessel Description: 3 Vessels and Nuchal Cord Event Summary Status: Mother and infant were stable after delivery. Disposition: floor
[2024-08-23] MEDS: IBUPROFEN 600 MG TABLET PO ×3 (00:22→21:03)
[2024-08-23 18:36] LABS: Rapid Plasma Reagin (RPR) Non Reactive (Non Reactive)
[2024-08-24 00:10] VITALS: BP 123/81; PULSE 95; RESP 16; TEMP 36.7; O2SAT 96
[2024-08-24 04:38] LABS: Hemoglobin* 10.8 gm/dL (12.0-16.0)
[2024-08-24] MEDS: IBUPROFEN 600 MG TABLET PO ×2 (07:39→13:33)
[2024-08-24] MEDS: DOCUSATE SODIUM 100 MG CAPSULE PO (07:40)
[2024-08-24 08:25] VITALS: BP 106/67; PULSE 81; RESP 16; TEMP 36.8; O2SAT 97
--- NOTE | 2024-08-24 10:05 | PM.OBPNVD1 ---
OB - PN:Subj Subjective Date Seen: 08/24/24 Narrative: Raymundo is a 18yo seen on PPD1 from [facility]. She presented in spontaneous labor, uncomplicated delivery. is complicated by POTS, autism spectrum disorder, anxiety, elevated BP without a diagnosis of HTN and anemia. Raymundo has been progressing through milestones appropriately. She notes having some abdominal and pelvic pain, controlled on ibuprofen. She notes she tries to avoid medicines in general, this is not taking Tylenol. She notes she has no pain at rest but she will be sore with movements. She is tolerating a diet without nausea or vomiting. Denies fever/chills, chest pain or shortness of breath. She denies any syncopal symptoms or exacerbation of her POTS symptoms in the period. Emotionally, she notes she is doing well. She notes it has been difficult to sleep in the hospital. She was initially planning to breastfeed, but ultimately decided to revise her feeding plan to formula due to distress and difficulty with . By nursing report, she has been slow to progress through milestones terms of support and bonding. This is going better this morning, review did to her ability to get rest overnight as baby was out of the room with nursing staff for 6 hours overnight. Pediatrics expressed recommendation for her to stay inpatient through day 2. Raymundo would like to discharge today but is open to staying if in the best interest of baby David. OB - PN: Obj Exam Physical Exam: Vital signs: Temp Pulse Resp BP Pulse Ox O2 Del Method 98.2 F 81 16 106/67 97 Room Air 08/24/24 08:25 08/24/24 08:25 08/24/24 08:25 08/24/24 08:25 08/24/24 08:08/24/24 08:25 Narrative: General: Alert and oriented, no acute distress. Seen lying in bed with baby David. Psych: Appropriate mood and affect, appropriately attentive to David. Abdomen: Soft, non-tender and non-distended. Fundus at 1 below umbilicus. Extremities: No pedal edema. No calf erythema, pain or swelling. OB - PN: Obj Data Labs Labs: Laboratory Results - last 24 hr 08/22/24 08/24/24 13:23 04:28 Hgb 10.8 L RPR Screen Non Reactive OB - PN: A/P Delivery Assessment and Plan (1) care following vaginal delivery: Status: Acute (2) High blood pressure affecting , antepartum: Status: Acute (3) Anemia affecting : Status: Acute (4) POTS (postural orthostatic tachycardia syndrome): Problem details: Home infusions and port placed in past for this. Status: Acute (5) Autism spectrum disorder: Status: Acute Plan Raymundo is a 18yo seen on PPD1 from [facility]. complicated by POTS, anxiety, autism spectrum disorder, anemia and elevated blood pressure without diagnosis of hypertension. Medically, Raymundo has been doing well throughout her course. Pain is well controlled, she is voiding spontaneously, tolerating a diet. Abdominal exam is reassuring. Vital signs have been within normal limits, where her POTS symptoms have been well controlled. She has been slow to progress through milestones in terms of care, which is now improved since she got rest overnight and revised her feeding plan to formula. No acute mood concerns today. Pediatrics expressed a recommendation for the patient to remain inpatient until PPD2 to continue to learn infant care and facilitate feeding support/bonding. From an OB perspective, Raymundo would meet criteria for dismissal but I want to make sure she feels entirely comfortable in terms of cares before going home. As such, I did encourage her to stay overnight. Ultimately, if she changes her mind after rounding with Pediatrics we can reconsider dismissal to home later today. Recommend continued routine cares and bonding/cares and feeding support. Disposition: Likely discharge to home tomorrow. Plan day: 1 Plan: routine care
[2024-08-24 14:50] VITALS: BP 133/82; PULSE 101; RESP 16; TEMP 36.4; O2SAT 98
--- NOTE | 2024-08-24 15:02 | P.DS_ITS ---
DS: Providers Provider Date Seen: 08/24/24 Date of admission: 08/22/24 12:30 Primary care physician: Not a Local Provider Admitting Clinician: Elena Kurtz MD Attending Physician on discharge: Elena Kurtz MD Date of Discharge: 08/24/24 Exam Narrative: Exam Narrative: See exam from AM rounding note. VS reviewed and are within normal limits. Const: Vital Signs, click to edit/add: Vital Signs - 24 hr 08/23/24 16:11 08/23/24 20:40 08/24/24 00:10 Temperature 98.0 F 97.9 F 98.0 F Pulse Rate [Pulse Oximeter] 102 H 81 95 Respiratory Rate 17 18 16 Blood Pressure [Le ft Arm] 122/87 123/82 123/81 Pulse Oximetry 98 99 96 Oxygen Delivery Me thod Room Air Room Air Room Air 08/24/24 08:25 Temperature 98.2 F Pulse Rate [Pulse Oximeter] 81 Respiratory Rate 16 Blood Pressure [Le ft Arm] 106/67 Pulse Oximetry 97 Oxygen Delivery Me thod Room Air OB - DS: Summary Hospital Course Hospital Course: The patient is a 18 year old G 1P 1 at 39 weeks gestation that was admitted to the Center on 08/22/24 for PROM. She had an uncomplicated vaginal delivery. She delivered a viable male . She is bottle feeding. the patient has done well. Raymundo was initially recommended to stay until PPD2 from Pediatrics to optimize care and support. Patient has since revised her feeding plan to formula and has made good progress in terms of care. She is highly motivated to DC to home today, ren Hernandez was cleared by Pediatrics to do so. Raymundo is meeting all appropriate milestones - pain is well controlled, PO intake, lochia is appropriate, voiding and passing gas, ambulates without difficulty. She has had no POTS concerns. Peripartum Data delivery method: Vaginal [place] Infant Gender: Male Time Spent with Patient Time attestation: Total time spent providing and/or coordinating discharge services: Time spent: Less than 30 minutes Discharge Plan Discharge Disposition: Home, Self-Care Date of Admission: 08/22/24 12:30 Primary Care Provider: Provider,Not a Local Condition: Stable Anticipated Discharge Date/Time: 08/24/24 15:05 Discharge Medications: Continued triamcinolone acetonide 0.1 % cream 1 applic topical BID hydroxyzine HCl 10 mg tablet 5 mg PO .PRN PRN (Reason: anxiety) Rx Instructions: 1/2-1 tab as needed for anxiety. Can take before bedtime every night as needed for sleep. One A Day Women's DHA 28 mg iron- 800 mcg combo pack 1 pkg PO DAILY Qty: 90 3RF Discharge Orders: Discharge Order (Routine); Ordered 08/24/24 Ordered By: Estefania Garcia Patient Education: OB Vaginal/Bottle Feeding Additional Instructions: Discharge instructions were reviewed with the patient including signs and symptoms of infection and home going medications Nothing vaginally for 6 weeks: no tampons or intercourse Do not drive while taking narcotic pain medication(s) Off Work or School for 8 weeks Symptoms to report to doctor: * Bleeding that saturates more than one pad per hour * Passing clots larger than the size of a golf ball * Pain not relieved by prescribed medication * Fever above 100.4 degrees Fahrenheit * A foul vaginal odor * Difficulty in emotions, mood, and functions * Thoughts of hurting yourself and/or * Painful, reddened area in your breast * Any drainage, redness, or tenderness in your IV/epidural site * Severe headache that doesn't improve after taking medications * Changes in vision, including temporary loss of vision, blurred vision, and/or light sensitivity * Upper abdominal pain (usually under ribs on the right side) * Decrease in urination or painful, frequent urinating * Chest pain * Shortness of breath * Tenderness or pain with redness and/swelling in the calf(s) of your leg Optional 2-week visit: discuss feeding concerns, review control options and screen for anxiety/depression. 6-week visit for an annual exam. consultation services are available to all mothers and babies for the first year after delivery.? To make an appointment, please call [phone]. Activity Level: No Restrictions Follow Up Appointments: Provider,Not a Local [Primary Care Provider] - Forms: [employer] Info Instructions
== END 2024-08-24 17:00 | disposition home or self-care (01) | DRG 560 ==
LOC: OB OUT 16:32 → OB 08-23 07:54
PROVIDERS: Admitting Provider Obstetrics & Gynecology; Visit Provider Obstetrics & Gynecology
DX: O42.02 Full-term premature rupture of membranes, onset of labor within 24 hours of rupture (principal); Z3A.39 39 weeks gestation of pregnancy; Z37.0 Single live birth; O99.824 Streptococcus B carrier state complicating childbirth; O76 Abnormality in fetal heart rate and rhythm complicating labor and delivery; O99.02 Anemia complicating childbirth; D64.9 Anemia, unspecified; G90.A Postural orthostatic tachycardia syndrome [POTS]; O99.344 Other mental disorders complicating childbirth; F41.9 Anxiety disorder, unspecified; R03.0 Elevated blood-pressure reading, without diagnosis of hypertension; F84.0 Autistic disorder
CPT/HCPCS: 36415; 84112; 85018; 85025; 86592; 86850; 86900; 86901; G0463; A9270; J0290; J7120

== ENCOUNTER 2024-09-05 15:41 | Outpatient (CLI) | payer MEDICAID, SELFPAY | END 2024-09-05 15:42 | disposition home or self-care (01) | PROVIDERS: Visit Provider Physician Assistant | DX: R30.0 Dysuria (principal) | CPT/HCPCS: 87086 ==

== ENCOUNTER 2024-09-07 | Outpatient (CLI) | payer MEDICAID, SELFPAY | END 2024-09-07 00:01 | disposition home or self-care (01) | LOC: NFLDREF 09-26 21:17 | PROVIDERS: Visit Provider Physician Assistant | DX: R19.7 Diarrhea, unspecified (principal) | CPT/HCPCS: 87493 ==

== ENCOUNTER 2024-10-04 16:27 | Outpatient (CLI) | payer MEDICAID, SELFPAY | END 2024-10-04 16:28 | disposition home or self-care (01) | LOC: NFLDREF 10-09 00:39 | PROVIDERS: Visit Provider Registered Nurse | DX: R03.0 Elevated blood-pressure reading, without diagnosis of hypertension (principal) | CPT/HCPCS: 82565; 82570; 84156; 84450; 84460; 84520 ==

== ENCOUNTER 2025-03-11 14:38 | Outpatient (CLI) | payer MEDICAID, SELFPAY ==
[2025-03-18 16:02] LABS: Pap Test Digital Imaging Done
== END 2025-03-11 14:39 | disposition home or self-care (01) ==
LOC: NFLDREF 14:39
PROVIDERS: Visit Provider Registered Nurse
DX: Z12.4 Encounter for screening for malignant neoplasm of cervix (principal)
CPT/HCPCS: 87624; 87625; 88141; 88142; 88175